=== PATIENT | male | born 1965 | race Two or more races ===

== ENCOUNTER 2024-05-02 09:48 | Outpatient (AMB) | payer BC, SELFPAY ==
--- NOTE | 2024-05-02 00:43 | A.OFFVIS_ITS ---
Intake Visit Reasons: elevated PSA Intake Note: New patient is present to establish care for elevated PSA Any Urology Medications: None Antibiotic Allergy: None Blood Thinner: None Family History: Bladder Cancer? No Prostate Cancer? No Patient Symptoms: None Accompanied by: Self / Same As Patient Allergies No Known Allergies Allergy (Verified 05/02/24 10:03) Medication List - Last Reconciled 05/02/24 by Carlos Hodgson MD atorvastatin 20 mg PO DAILY ciprofloxacin HCl 500 mg PO BID dapagliflozin propanediol (Farxiga) 10 mg PO DAILY empagliflozin-metformin 12.5-1,000 mg (Synjardy) 1 tab PO BID glimepiride 4 mg PO DAILY losartan-hydrochlorothiazide 100-12.5 mg 1 tab PO DAILY Do you need a note to return to daycare/school/sports/work: Yes Return to daycare/school/sports/work/other note: work HPI Comments Details: 05/02/2024--Dontrell is a 58-year-old male here for new patient evaluation for elevated PSA 12.8. Dontrell denies any urinary symptoms. He states prior to starting medication for diabetes he was getting up several times at nighttime but this has resolved since his diabetes is under control. I have discussed PSA is a blood test, prostate specific antigen and is an enzyme secreted by the prostate gland. Elevated PSA may be due to multiple conditions including prostate inflammatory condition, enlarged prostate or prostate cancer. Plan schedule prostate biopsy outpatient. Cipro 500 mg twice a day for 5 days start 1 day prior to prostate biopsy. [facility] Medical History (Updated 05/02/24 @ 13:21 by Carlos Hodgson MD) PSA elevation Dyslipidemia DM w/o complication type II A-fib GERD (gastroesophageal reflux disease) Hypertension Surgical History History of appendectomy Review of Systems Const All systems reviewed & are unremarkable except as noted in HPI and below Reports no additional complaints Eyes Reports no additional complaints ENT Reports no additional complaints Card Reports no additional complaints Resp Reports no additional complaints GI Reports no additional complaints Reports as per HPI Musc Reports no additional complaints Skin/Breast Reports system reviewed and no additional complaints, except as documented Neuro Reports no additional complaints Psych Reports no additional complaints Endo Reports no additional complaints Johny/Lymph Reports no additional complaints Aller/Immun Reports no additional complaints Physical Exam Const General: healthy appearing, no acute distress and well developed Orientation/consciousness: patient oriented x3 HEENT Head: Yes normocephalic and Yes atraumatic Eyes Conjunctivae: conjunctivae normal Neck Neck: Yes normal visual inspection Chest Chest palpation & inspection: normal inspection of the chest Resp Effort & Inspection: normal respiratory effort Cardio Rate: regular rate GI Inspection: Yes normal to inspection Skin General skin exam: no rashes or lesions noted Neuro General: patient oriented x3 Psych Appearance: grossly normal Affect: normal affect Results AMB Urinalysis, Automated UA Leukoctes 0 Corrie/uL Last Edit by Korin Rothman CMA on 05/02/24 10:05 UA Nitrite Negative Last Edit by Korin Rothman CMA on 05/02/24 10:05 UA Urobilinogen 0.2 mg/dL Last Edit by Korin Rothman CMA on 05/02/24 10:0 5 UA Protein 0 mg/dL Last Edit by Korin Rothman CMA on 05/02/24 10:05 UA pH 7.5 Last Edit by Korin Rothman CMA on 05/02/24 10:05 UA Blood 0 Jakob/uL Last Edit by Korin Rothman, ZAHEER on 05/02/24 10:05 UA Specific [place] 1.015 Last Edit by Korin Rothman CMA on 05/02/24 10: 05 UA Ketone Negative Last Edit by Korin Rothman CMA on 05/02/24 10:05 UA Bilirubin 0 mg/dL Last Edit by Korin Rothman CMA on 05/02/24 10:05 UA Glucose 1000 mg/dL Last Edit by Korin Rothman CMA on 05/02/24 10:05 Results Reviewed Results Reviewed: Laboratory Last Values Urine pH (Auto) 7.5 05/02/24 09:55 Specific [place] (Auto) 1.015 05/02/24 09:55 Urine Protein (Auto) 0 mg/dL 05/02/24 09:55 Glucose (UA)(Auto) 1000 mg/dL 05/02/24 09:55 Urine Ketones (Auto) Negative 05/02/24 09:55 Urine Blood (Auto) 0 Jakob/uL 05/02/24 09:55 Urine Nitrite (Auto) Negative 05/02/24 09:55 Urine Bilirubin (Auto) 0 mg/dL 05/02/24 09:55 Urine Urobilinogen (Auto) 0.2 mg/dL 05/02/24 09:55 Leukocyte Esterase (Auto) 0 Corrie/uL 05/02/24 09:55 Assessment & Plan Assessment & Plan (1) PSA elevation: Code(s): R97.20 - Elevated prostate specific antigen [PSA] Category: Medical (2) BPH (benign prostatic hyperplasia): Code(s): N40.0 - Benign prostatic hyperplasia without lower urinary tract symptoms Category: Medical Plan Outpatient prostate biopsy Orders: Orders AMB Urinalysis Automated 05/02/24 Z13.9 - Encounter for screening, unspecified Medications: New ciprofloxacin HCl Start Cipro one day prior to prostate biopsy. 500 mg PO BID 10 tabs 0RF prostate biopsy Patient Instructions: The patient had an opportunity to ask questions regarding treatment plan. The patient expressed understanding and agreement with the above treatment plan. The patient is aware they should contact our office by phone for worsening of their current condition or the appearance of new symptoms. Compliance is encouraged with any medications and followup testing that is ordered. It is a privilege to be allowed the opportunity to participate in the urologic care of your patient. If you have any questions or concerns regarding treatment for the above conditions please do not hesitate to contact me. The office telephone contact is [phone]. This note is constructed in part using voice recognition software. While every e ffort has been made to ensure accuracy film color tester errors may have been included. Yours sincerely, Carlos Hodgson MD Coding Level of Care Code New Pt Level 4 (75481) Diagnoses PSA elevation R97.20 BPH (benign prostatic hyperplasia) N40.0
== END 2024-05-02 11:35 | disposition home or self-care (01) ==
PROVIDERS: Visit Provider Urology
DX: R97.20 Elevated prostate specific antigen [PSA] (principal); N40.0 Benign prostatic hyperplasia without lower urinary tract symptoms
CPT/HCPCS: 99204

== ENCOUNTER → 2024-05-02 09:48 | Outpatient (BNVA) | payer BC, SELFPAY | PROVIDERS: Visit Provider Urology | DX: R97.20 Elevated prostate specific antigen [PSA] (principal); N40.0 Benign prostatic hyperplasia without lower urinary tract symptoms | CPT/HCPCS: 81003 ==

== ENCOUNTER 2024-05-30 07:32 | Outpatient (REF) | payer BC, SELFPAY ==
[2024-05-30] MEDS: Lidocaine HCl 1 % MPF 5 ML VIAL 10 ML SUBCUT (08:44)
--- NOTE | 2024-05-30 09:20 | W.PM.OPN ---
Operative Note Operative Note Date of Service: 05/30/24 Narrative: PreOperative Diagnosis:? ? Elevated PSA Post Operative Diagnosis:??Elevated PSA Procedure:?1. Transrectal ultrasound guided biopsy of the prostate 12 core 2. Transrectal ultrasound measurement of prostate 3. Transrectal ultrasound guided pudendal nerve block Surgeon:?Dr Carlos Hodgson Anesthesia:? Local Indications for procedure: Elevated PSA Procedure: Preoperative antibiotics confirmed. After informed consent was verified the patient was placed on the procedure table in left lateral position. Patient identity confirmed. Safety pause time-out performed. Digital rectal exam performed to dilate rectal sphincter, iodine mixed with lubricant jelly 30 cc placed per rectum. Ultrasound probe was placed per rectum. The prostate was visualized. The prostate was measured width 4.69 cm, height 3.39 cm, length 4.27 cm with a volume of 35.6 mL. An ultrasound guided pudendal nerve block was performed using 10 cc of 1% lidocaine. A 12 core biopsy was performed from the left base, left mid, left apex and right base, mid, apex 2 biopsies from each section. The ultrasound probe was removed and digital palpation of the prostate for 1-2 minutes for hemostasis was performed. The patient tolerated the procedure well. Complications: None
== END 2024-05-30 07:33 | disposition home or self-care (01) ==
LOC: HO.US 07:32
PROVIDERS: Visit Provider Urology
DX: C61 Malignant neoplasm of prostate (principal)
CPT/HCPCS: 55700; 76942; 88305; 88344; J2003

== ENCOUNTER → 2024-05-30 07:32 | Outpatient (BNV) | payer BC, SELFPAY | PROVIDERS: Visit Provider Urology | DX: R97.20 Elevated prostate specific antigen [PSA] (principal) | CPT/HCPCS: 55700; 76872; 76942 ==

== ENCOUNTER 2024-06-16 14:00 | Outpatient (AMB) | payer BC, SELFPAY ==
--- NOTE | 2024-06-16 14:01 | A.OFFVIS_ITS ---
Intake Visit Reasons: Prostate biopsy results(pending) Intake Note: Patient is present for PROSTATE BIOPSY RESULTS Urology Medication:NONE Antibiotic Allergy:NONE Blood Thinner:NONE Burglar Alarm Superintendent Required: Yes Burglar Alarm Superintendent Language: Susie Monroe Burglar Alarm Superintendent Name: [id number] Information Interpreted: non-clinical & clinical Allergies No Known Allergies Allergy (Verified 06/16/24 14:02) Medication List - Last Reconciled 06/16/24 by Carlos Hodgson MD atorvastatin 20 mg PO DAILY ciprofloxacin HCl 500 mg PO BID dapagliflozin propanediol (Farxiga) 10 mg PO DAILY empagliflozin-metformin 12.5-1,000 mg (Synjardy) 1 tab PO BID glimepiride 4 mg PO DAILY losartan-hydrochlorothiazide 100-12.5 mg 1 tab PO DAILY tadalafil 5 mg PO DAILY 30 days HPI Comments Details: 06/16/24--Susie/Farhat certified piling setter utilized; status post prostate biopsy on 05/30/24 I have reviewed results, [place] 3+3, group 1. I have discussed treatment options to include Radical prostatectomy: The major possible side effects of radical prostatectomy are: Urinary incontinence and Erectile dysfunction Radiation Therapy, which uses high-energy rays or particles to kill cancer cells. External beam radiation vs Brachytherapy (internal radiation). Active Surveillance- reasonable in localized early diagnosed prostate cancer. Plan consider active surveillance -patient is pre biopsy PSA greater than 12. Will check bone scan, send prostate biopsy tissue for Polaris and MRI and PSA in 4 months. Discussed baseline erectile function. The patient states it is about 60%. Comorbidity diabetes. Will start daily Cialis 5 mg. 45 minutes spent in review of records pertaining to this visit and including [id number] discussion with the patient and documentation of this visit. 05/02/2024--Dontrell is a 58-year-old male here for new patient evaluation for elevated PSA 12.8. Dontrell denies any urinary symptoms. He states prior to starting medication for diabetes he was getting up several times at nighttime but this has resolved since his diabetes is under control. I have discussed PSA is a blood test, prostate specific antigen and is an enzyme secreted by the prostate gland. Elevated PSA may be due to multiple conditions including prostate inflammatory condition, enlarged prostate or prostate cancer. Plan schedule prostate biopsy outpatient. Cipro 500 mg twice a day for 5 days start 1 day prior to prostate biopsy. PFSH Medical History PSA elevation Dyslipidemia DM w/o complication type II A-fib GERD (gastroesophageal reflux disease) Hypertension Surgical History History of appendectomy Review of Systems Const All systems reviewed & are unremarkable except as noted in HPI and below Reports no additional complaints Eyes Reports no additional complaints ENT Reports no additional complaints Card Reports no additional complaints Resp Reports no additional complaints GI Reports no additional complaints Reports as per HPI Musc Reports no additional complaints Skin/Breast Reports system reviewed and no additional complaints, except as documented Neuro Reports no additional complaints Psych Reports no additional complaints Endo Reports no additional complaints Johny/Lymph Reports no additional complaints Aller/Immun Reports no additional complaints Results AMB Urinalysis, Automated UA Leukoctes 0 Corrie/uL Last Edit by TURNER Vogel on 06/16/24 14:16 UA Nitrite Negative Last Edit by TURNER Vogel on 06/16/24 14:16 UA Urobilinogen 0.2 mg/dL Last Edit by TURNER Vogel on 06/16/24 14:1 6 UA Protein 30 mg/dL Last Edit by TURNER Vogel on 06/16/24 14:16 UA pH 6.0 Last Edit by Xavier Fierro CCM on 06/16/24 14:16 UA Blood 200 Jakob/uL Last Edit by TURNER Vogel on 06/16/24 14:16 UA Specific [place] 1.020 Last Edit by TURNER Vogel on 06/16/24 14: 16 UA Ketone Negative Last Edit by TURNER Vogel on 06/16/24 14:16 UA Bilirubin 0 mg/dL Last Edit by TURNER Vogel on 06/16/24 14:16 UA Glucose 1000 mg/dL Last Edit by TURNER Vogel on 06/16/24 14:16 Results Reviewed Results Reviewed: Collected: 05/30/24 Location: [facility] Received: 05/30/24 Diagnosis A: Left base lateral: Atypical glands, suspicious for adenocarcinoma. B: Left base medial: Benign prostatic tissue. C: Left mid lateral: Prostatic adenocarcinoma, Josias score 6 (3+3), grade group 1, 1.5 mm, 8% of core, perineural invasion, and prostatic intraepithelial neoplasia. D: Left mid medial: Atypical glands, suspicious for adenocarcinoma. E: Left apex lateral: Benign prostatic tissue. F: Left apex medial: Benign prostatic tissue. G: Right base lateral: Benign prostatic tissue. H: Right base medial: Benign prostatic tissue. I: Right mid lateral: Prostatic adenocarcinoma, [place] score 6 (3+3), grade group 1, 0.3 mm, 2% of core. J: Right mid medial: Atypical glands, suspicious for focal prostatic intraepithelial neoplasia. K: Right apex lateral: Prostatic adenocarcinoma, Josias score 6 (3+3), grade group 1, 3 mm, 20% of core. L: Right apex medial: Prostatic adenocarcinoma, [place] score 6 (3+3), grade group 1, 0.5 mm, 3% of core, and focal prostatic intraepithelial neoplasia. Data synopsis - Prostate needle biopsy Histologic type: Adenocarcinoma, acinar type Histologic grade: Josias score: 6 (3+3) % of pattern 4: 0 % of pattern 5: 0 Grade group: 1 Tumor quantitation: Number cores positive: 4 Patient: Dontrell Rios Age/Sex: 58/M MR#: [id number] Page 1 of 4 Surgical Pathology [id number] Total number of cores: 13 % of tissue involved: 3% Periprostatic fat inv.: Not identified Seminal vesicle inv.: Not identified Perineural inv.: Present Lymphatic and/or blood vessel invasion: Not identified Clinical History Elevated PSA Microscopic Description Microscopic sections reviewed. Sections show multiple needle cores of prostate gland parenchyma which are variably involved by prostatic adenocarcinoma ranging from 2-20% of the cores. The tumor is composed of well-formed glands, [place] score 6(3+3), with mildly pleomorphic nuclei and relatively distinct nucleoli. Focal perineural invasion is identified in part C. There is no evidence of lymphovascular invasion, or extraprostatic extension. PIN4 multiplex stain is performed with results on the areas of interest as follows: Suspicious glands in Part A show positive P504S and negative HMWkeratin and p63. Part B shows patchy P504S staining similar to background, with positive HMWkeratin and p63. Part D shows positive P504S and rare basal cells on HMWkeratin and p63. Part I shows positive P504S and negative HMWkeratin and p63. Part J shows an area suspicious for focal PIN on H&E stain, however this area is disrupted on the immunostained slide. Part K shows positive P504S and negative HMWkeratin and p63. Part L shows shows positive P504S and few basal cells in prostatic intraepithelial neoplasia, and positive P504S and negative HMWkeratin and p63 in invasive tumor. Controls stain appropriately. Material Received A: Left base lateral B: Left base medial C: Left mid lateral D: Left mid medial E: Left apex lateral F: Left apex medial G: Right base lateral H: Right base medial I: Right mid lateral J: Right mid medial K: Right apex lateral L: Right apex medial Assessment & Plan Assessment & Plan (1) PSA elevation: Code(s): R97.20 - Elevated prostate specific antigen [PSA] Category: Medical (2) Adenocarcinoma of prostate: Code(s): C61 - Malignant neoplasm of prostate Category: Medical (3) Erectile dysfunction: Code(s): N52.9 - Male erectile dysfunction, unspecified Category: Medical (4) Diabetes: Code(s): E11.9 - Type 2 diabetes mellitus without complications Category: Medical Plan Polaris testing, bone scan, MR prostate. Cialis 5 mg daily Orders: Orders NM bone scan whole body Today C61 - Malignant neoplasm of prostate, R97.20 - Elevated prostate specific antigen [PSA] MR Prostate wo/w con 3 Months C61 - Malignant neoplasm of prostate AMB Urinalysis Automated Today Z13.9 - Encounter for screening, unspecified Urine Culture Today N39.0 - Urinary tract infection, site not specified Medications: Discontinued ciprofloxacin HCl Start Cipro one day prior to prostate biopsy. Discontinued Reason: Patient Completed Course 500 mg PO BID 10 tabs 0RF prostate biopsy Patient Instructions: The patient had an opportunity to ask questions regarding treatment plan. The patient expressed understanding and agreement with the above treatment plan. The patient is aware they should contact our office by phone for worsening of their current condition or the appearance of new symptoms. Compliance is encouraged with any medications and followup testing that is ordered. It is a privilege to be allowed the opportunity to participate in the urologic care of your patient. If you have any questions or concerns regarding treatment for the above conditions please do not hesitate to contact me. The office telephone contact is [phone]. This note is constructed in part using voice recognition software. While every effort has been made to ensure accuracy computer lab para professional errors may have been included. Yours sincerely, Carlos Hodgson MD Coding Level of Care Code Est Pt Level 5 (90478) Diagnoses PSA elevation R97.20 Adenocarcinoma of prostate C61 Erectile dysfunction N52.9 Diabetes E11.9
== END 2024-06-16 15:23 | disposition home or self-care (01) ==
PROVIDERS: Visit Provider Urology
DX: R97.20 Elevated prostate specific antigen [PSA] (principal); C61 Malignant neoplasm of prostate; N52.9 Male erectile dysfunction, unspecified; E11.9 Type 2 diabetes mellitus without complications; Z13.9 Encounter for screening, unspecified
CPT/HCPCS: 99215

== ENCOUNTER 2024-06-16 14:00 | Outpatient (REF) | payer BC, SELFPAY | END 2024-06-16 14:01 | disposition home or self-care (01) | LOC: HO.LAB 14:00 | PROVIDERS: Visit Provider Urology | DX: C61 Malignant neoplasm of prostate (principal); N39.0 Urinary tract infection, site not specified | CPT/HCPCS: 81003; 87086 ==

== ENCOUNTER → 2024-09-11 10:52 | Outpatient (REF) | payer SELFPAY ==
--- NOTE | ~2024-09-11 | NM_ITS ---
EXAMINATION: NM BONE SCAN WHOLE BODY HISTORY: R97.20 - Elevated prostate specific antigen [PSA]. TECHNIQUE: A total body bone scan was performed following the intravenous administration of 33 mCi technetium 99m-MDP. COMPARISON: There are no prior studies for comparison. FINDINGS: There is mild increased uptake at the knees and the AC joints, compatible with osteoarthritis. The remainder of the visualized osseous structures demonstrate a normal distribution of activity. There is normal bilateral renal uptake. NM/NM bone scan whole body IMPRESSION: No scintigraphic evidence of osseous metastatic disease. Electronically signed by: Usman Wills MD 09/12/2024 07:54 AM EDT
--- OUTSIDE RECORDS SUMMARY | 2024-09-11 12:31 | XMS_ITS | Patient Health Record ---
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 Role Phone Sushant Grimm Primary Care Provider David Powell Unavailable [phone] Ann Freeman Unavailable [phone] Allergies No Known Allergies Results Component Value Reference Range Notes MICROALBUMIN, RANDOM URINE ( W/CREATININE) Reviewed date:05/19/2024 10:46:50 AM Interpretation: Performing Lab:NL2, import2 [facility], [address] [place] [address], [phone] Alma Tobar Notes/Report: Received Date: CREATININE, RANDOM URINE 135 20-320 mg/dL ALBUMIN, URINE 4.9 See Note: mg/dL Reference Range: Reference Range Not established ALBUMIN/CREATININE RATIO, RANDOM URINE 36 <30 mg/g creat The ADA defines abnormalities in albumin excretion as follows: Albuminuria Category Result (mg/g creatinine) Normal to Mildly increased <30 Moderately increased 30-299 Severely increased > OR = 300 The ADA recommends that at least two of three specimens collected within a 3-6 month period be abnormal before considering a patient to be within a diagnostic category. CBC (INCLUDES DIFF/PLT) Reviewed date:05/19/2024 10:46:50 AM Interpretation: Performing Lab:NL2, import2 [facility], [address] [place] [address], [phone] Alma Tobar Notes/Report: Received Date: WHITE BLOOD CELL COUNT 10.3 3.8-10.8 Thousand/ uL RED BLOOD CELL COUNT 5.90 4.20-5.80 Million/uL HEMOGLOBIN 16.9 13.2-17.1 g/dL HEMATOCRIT 51.8 38.5-50.0 % MCV 87.8 80.0-100.0 fL MCH 28.6 27.0-33.0 pg MCHC 32.6 32.0-36.0 g/dL For adults, a slight decrease in the calculated MCHC value (in the range of 30 to 32 g/dL) is most likely not clinically significant; however, it should be interpreted with caution in correlation with other red cell parameters and the patient's clinical condition. RDW 12.6 11.0-15.0 % PLATELET COUNT 208 140-400 Thousand/uL MPV 11.4 7.5-12.5 fL ABSOLUTE NEUTROPHILS 6613 1589-9843 cells/uL ABSOLUTE LYMPHOCYTES 2977 850-3900 cells/uL ABSOLUTE MONOCYTES 608 200-950 cells/uL ABSOLUTE EOSINOPHILS 62 15-500 cells/uL ABSOLUTE BASOPHILS 41 0-200 cells/uL NEUTROPHILS 64.2 LYMPHOCYTES 28.9 MONOCYTES 5.9 EOSINOPHILS 0.6 BASOPHILS 0.4 PSA, TOTAL Reviewed date:05/19/2024 10:46:50 AM Interpretation: Performing Lab:[facility], [facility], [address] [place] [address], [phone] Alma Tobar Notes/Report: Received Date: PSA, TOTAL 11.82 < OR = 4.00 ng/mL The total PSA value from this assay system is standardized against the WHO standard. The test result will be approximately 20% lower when compared to the equimolar-standardized total PSA ([place]ocelyn [place]). Comparison of serial PSA results should be interpreted with this fact in mind. This test was performed using the Siemens chemiluminescent method. Values obtained from different assay methods cannot be used interchangeably. PSA levels, regardless of value, should not be interpreted as absolute evidence of the presence or absence of disease. HEMOGLOBIN A1c Reviewed date:05/19/2024 10:46:50 AM Interpretation: Performing Lab:NL2, import2 [facility], [address] [place] [address], [phone] Chichimarilyn Gallegosyesenia Notes/Report: Received Date: [id number] HEMOGLOBIN A1c 6.2 <5.7 % of total Hgb For someone without known diabetes, a hemoglobin A1c value between 5.7% and 6.4% is consistent with prediabetes and should be confirmed with a follow-up test. For someone with known diabetes, a value <7% indicates that their diabetes is well controlled. A1c targets should be individualized based on duration of diabetes, age, comorbid conditions, and other considerations. This assay result is consistent with an increased risk of diabetes. Currently, no consensus exists regarding use of hemoglobin A1c for diagnosis of diabetes for children. COMPREHENSIVE METABOLIC PANE L (REFL) Reviewed date:05/19/2024 10:46:50 AM Interpretation: Performing Lab:NL2, import2 [facility], [address] [place] [address], [phone] Alma Gallegossivanarnaldo Notes/Report: Received Date: [id number] GLUCOSE 144 65-99 mg/dL Fasting reference interval For someone without known diabetes, a glucose value >125 mg/dL indicates that they may have diabetes and this should be confirmed with a follow-up test. UREA NITROGEN (BUN) 16 7-25 mg/dL CREATININE 1.26 0.70-1.30 mg/dL EGFR 67 > OR = 60 mL/min/1.73m2 BUN/CREATININE RATIO SEE NOTE: 6-22 (calc) Not Reported: BUN and Creatinine are within reference range. SODIUM 138 135-146 mmol/L POTASSIUM 4.5 3.5-5.3 mmol/L CHLORIDE 99 98-110 mmol/L CARBON DIOXIDE 33 20-32 mmol/L CALCIUM 10.1 8.6-10.3 mg/dL PROTEIN, TOTAL 7.4 6.1-8.1 g/dL ALBUMIN 4.7 3.6-5.1 g/dL GLOBULIN 2.7 1.9-3.7 g/dL (calc) ALBUMIN/GLOBULIN RATIO 1.7 1.0-2.5 (calc) BILIRUBIN, TOTAL 0.6 0.2-1.2 mg/dL ALKALINE PHOSPHATASE 67 35-144 U/L AST 18 10-35 U/L ALT 22 9-46 U/L LIPID PANEL WITH REFLEX TO D IRECT LDL Reviewed date:05/19/2024 10:46:50 AM Interpretation: Performing Lab:[employer], import2 [facility], [address] [place] [address], [phone] Alma Gallegosyesenia Notes/Report: Received Date: [id number] CHOLESTEROL, TOTAL 88 <200 mg/dL HDL CHOLESTEROL 39 > OR = 40 mg/dL TRIGLYCERIDES 95 <150 mg/dL LDL-CHOLESTEROL 31 Reference range: <100 Desirable range <100 mg/dL for primary prevention; <70 mg/dL for patients with CHD or diabetic patients with > or = 2 CHD risk factors. LDL-C is now calculated using the Robbi calculation, which is a validated novel method providing better accuracy than the Friedewald equation in the estimation of LDL-C. Jus KAN et al. YULIA. 2013;310(90): 6130-4882 (http://SmartPay Jieyin.Vettery/faq/OGI142) CHOL/HDLC RATIO 2.3 <5.0 (calc) NON HDL CHOLESTEROL 49 <130 mg/dL (calc) For patients with diabetes plus 1 major ASCVD risk factor, treating to a non-HDL-C goal of <100 mg/dL (LDL-C of <70 mg/dL) is considered a therapeutic option. HEMOGLOBINOPATHY EVALUATION Reviewed date:11/29/2023 11:01:49 AM Interpretation: Performing Lab:[employer], import2 [facility], [address] [place] [address], [phone] Alma Gallegosyesenia Notes/Report: Received Date: [id number] RED BLOOD CELL COUNT 5.10 4.20-5.80 Million/uL HEMOGLOBIN 14.8 13.2-17.1 g/dL HEMATOCRIT 44.8 38.5-50.0 % MCV 87.8 80.0-100.0 fL MCH 29.0 27.0-33.0 pg RDW 13.2 11.0-15.0 % HEMOGLOBIN A 97.2 >96.0 % HEMOGLOBIN F <1.0 <2.0 % HEMOGLOBIN A2 (QUANT) 2.8 2.0-3.2 % INTERPRETATION Normal phenotype. HEMOGLOBIN A1c Reviewed date:11/29/2023 11:01:49 AM Interpretation: Performing Lab:[employer], import2 [facility], [address] [place] [address], [phone] Alma Tobar Notes/Report: Received Date: [id number] NON-FASTING HEMOGLOBIN A1c 6.4 <5.7 % of total Hgb For someone without known diabetes, a hemoglobin A1c value between 5.7% and 6.4% is consistent with prediabetes and should be confirmed with a follow-up test. For someone with known diabetes, a value <7% indicates that their diabetes is well controlled. A1c targets should be individualized based on duration of diabetes, age, comorbid conditions, and other considerations. This assay result is consistent with an increased risk of diabetes. Currently, no consensus exists regarding use of hemoglobin A1c for diagnosis of diabetes for children. This test was performed on the Jae kay c503 platform. Effective 07/16/23, a change in test platforms from the Ram[employer]rez [employer] to the Jae kay c503 may have shifted HbA1c results compared to historical results. Based on laboratory validation testing conducted at [facility], the Jae platform relative to the Ramírez platform had an average increase in HbA1c value of < or = 0.3%. This difference is within accepted variability established by the National Glycohemoglobin Standardization Program. Note that not all individuals will have had a shift in their results and direct comparisons between historical and current results for testing conducted on different platforms is not recommended. PSA, TOTAL Reviewed date:12/20/2023 04:20:33 PM Interpretation: Performing Lab:ETELVINA2, import2 [facility], [address] [place] [address], [phone] Alma Tobar Notes/Report: Received Date: [id number] PSA, TOTAL 12.35 < OR = 4.00 ng/mL The total PSA value from this assay system is standardized against the WHO standard. The test result will be approximately 20% lower when compared to the equimolar-standardized total PSA ([place]oc[place]). Comparison of serial PSA results should be interpreted with this fact in mind. This test was performed using the Siemens chemiluminescent method. Values obtained from different assay methods cannot be used interchangeably. PSA levels, regardless of value, should not be interpreted as absolute evidence of the presence or absence of disease. URINALYSIS, COMPLETE W/REFLE X TO CULTURE Reviewed date:12/20/2023 04:20:33 PM Interpretation: Performing Lab:NL2, [facility], [address] [place] [address], [phone] Chichimarilyn Noelle Jigaryogi Notes/Report: Received Date: COLOR YELLOW YELLOW APPEARANCE CLEAR CLEAR SPECIFIC GRAVITY 1.021 1.001-1.035 PH 5.5 5.0-8.0 GLUCOSE NEGATIVE NEGATIVE BILIRUBIN NEGATIVE NEGATIVE KETONES TRACE NEGATIVE OCCULT BLOOD NEGATIVE NEGATIVE PROTEIN TRACE NEGATIVE NITRITE NEGATIVE NEGATIVE LEUKOCYTE ESTERASE NEGATIVE NEGATIVE WBC NONE SEEN < OR = 5 /HPF RBC NONE SEEN < OR = 2 /HPF SQUAMOUS EPITHELIAL CELLS NONE SEEN < OR = 5 /HPF BACTERIA NONE SEEN NONE SEEN /HPF HYALINE CAST NONE SEEN NONE SEEN /LPF NOTE This urine was analyzed for the presence of WBC, RBC, bacteria, casts, and other formed elements. Only those elements seen were reported. REFLEXIVE URINE CULTURE NO C ULTURE INDICATED BASIC METABOLIC PANEL Reviewed date:12/20/2023 04:20:33 PM Interpretation: Performing Lab:NL2, import2 [facility], [address] [place] [address], [phone] Chichimarilyn Noelle Jigaryogi Notes/Report: Received Date: GLUCOSE 124 65-99 mg/dL Fasting reference interval For someone without known diabetes, a glucose value between 100 and 125 mg/dL is consistent with prediabetes and should be confirmed with a follow-up test. UREA NITROGEN (BUN) 20 7-25 mg/dL CREATININE 1.13 0.70-1.30 mg/dL EGFR 77 > OR = 60 mL/min/1.73m2 BUN/CREATININE RATIO SEE NOTE: 6-22 (calc) Not Reported: BUN and Creatinine are within reference range. SODIUM 138 135-146 mmol/L POTASSIUM 4.2 3.5-5.3 mmol/L CHLORIDE 100 98-110 mmol/L CARBON DIOXIDE 32 20-32 mmol/L CALCIUM 10.0 8.6-10.3 mg/dL Reason For Referral Reason please refer patient urology for evaluation and management of elevated PSA Diagnosis 1 Elevated PSA measure ment (R97.20) Referral Organization [facility] [employer] Referring Provider First Name David Referring Provider Last Name Sherry Referring Provider Speciality Nurse Prac titioner Referred Provider Specialty Urology General Notes Herson Gruber 11/11 11:23:14 AM > faxed to Referral Priority Routine Diagnosis 1 PSA elevation (R97.2 0) Referral Organization [facility] Referring Provider First Name Sushant Referring Provider Last Name Vahidbladimir Referring Provider Speciality Internal edicine Referred Provider Specialty Urology General Notes SAM MO 12/18/2023 11:37:24 AM > SENT TO DR. ZULEIKA ALONZO Referral Priority Routine Diagnosis 1 PSA elevation (R97.2 0) Referral Organization [facility] Referring Provider First Name Sushant Referring Provider Last Name Alfa Referring Provider Speciality Internal edicine Referred Provider Specialty Urology General Notes [facility] [place] 01/07/2024 02:26:55 PM > Sent to MARCO Saini P: [phone], F: [phone] Referral Priority Routine Diagnosis 1 Colon cancer screeni ng (Z12.11) Referral Organization [facility] Referring Provider First Name Ann Referring Provider Last Name Pete Referring Provider Speciality Nurse Prac titioner Referred Provider Specialty Gastroentero logy General Notes Berry Vibha 03/14 09:02:20 AM > Sent to [employer] p; [phone], f: [phone] Referral Priority Routine Reason Last PSA 12.8, no im provement with abx Diagnosis 1 PSA elevation (R97.2 0) Referral Organization [facility] Referring Provider First Name Ann Referring Provider Last Name Freeman Referring Provider Speciality Nurse Prac cristinaioner Referred Provider Specialty Urology General Notes Vibha Smart 03/14 09:00:50 AM > Sent to [employer] p: [phone], f: [phone] Referral Priority Urgent Medications Medication SIG (Take, Route, Frequency, Duration) Notes Start Date End Date Status Farxiga 10 MG 1 tablet Orally Once a day for 30 days Active Atorvastatin Calcium 20 MG 1 tablet Oral ly Once a day for 90 days Active Synjardy 12.5-1000 MG 1 tablet with meal s Orally Twice a day for 90 days Active Glimepiride 4 MG 1 tablet Orally Once a day for 90 days Active Losartan Potassium-HCTZ 50-12.5 MG 1 tablet Orally Once a day for 90 days Active Losartan Potassium-HCTZ 100-12.5 MG 1 tablet Orally Once a day for 30 days Active Social History Tobacco Use: Social History Observation Description Date Details (start date - stop date) Never Smoker NA - NA Sex Assigned At : Social History Observation Description Sex Assigned At Male Do you smoke? Question Answer Notes Are you a: nonsmoker Tobacco Use (other than smoking) Question Answer Notes Do you use other forms of tobacco? No AUDIT-C (Standard) Question Answer Notes Did you have a drink containing alcohol in the p ast year? No Points 0 Interpretation Negative Problems Problem Type SNOMED Code ICD Code Onset Dates Problem Status W/U Status Risk Notes Problem Essential hypertension (11853250) Essential (primary) hypertension (I10) Active confirmed Problem Body mass index 30.00 to 34.99 (217842579185455) Body mass index (BMI) 33.0-33.9, adult (Z68.33) Active confirmed Problem Gastroesophageal reflux disease (594660445) GERD (gastroesophagea l reflux disease) (K21.9) Active confirmed Problem Atrial fibrillation (60584406) A-fib (I48.91) Active confirmed Problem Hyperglycemia due to type 2 diabetes mellitus (512740823181552) Diabetes mellitus type 2, uncontrolled, without complications (E11.65) Active confirmed Problem Dyslipidemia (396605386) Dyslipidemia (high LDL; low HDL) (E78.5) Active confirmed Vital Signs Heart Rate 76 /min 03/27/2024 BS: 78 Last food/drink intake: 1 & 1/2 hour ago Temperature 98.2 degrees Fahrenheit 03/27/2024 BS: 78 Last food/drink intake: 1 & 1/2 hour ago Respiratory Rate 16 /min 03/27/2024 BS: 78 Last food/drink intake: 1 & 1/2 hour ago Oximetry 96 % 03/27/2024 BS: 78 Last food/drink intake: 1 & 1/2 hour ago Blood pressure diastolic 78 mm Hg 03/27/2024 BS: 78 Last food/drink intake: 1 & 1/2 hour ago Height 68 in 03/27/2024 BS: 78 Last food/drink intake: 1 & 1/2 hour ago Blood pressure systolic 134 mm Hg 03/27/2024 BS: 78 Last food/drink intake: 1 & 1/2 hour ago Weight 199 lbs 03/27/2024 BS: 78 Last food/drink intake: 1 & 1/2 hour ago BMI 30.25 kg/m2 03/27/2024 BS: 78 Last food/drink intake: 1 & 1/2 hour ago Encounters Encounter Location Date Provider Diagnosis [facility] [address] [address] 03/18/2024 [facility] [address] [address] 11/19/2023 David Powell Essential (primary) hypertension I10 ; Body mass index (BMI) 33.0-33.9, adult Z68.33 ; Diabetes mellitus type 2, uncontrolled, without complications E11.65 ; A-fib I48.91 ; Encounter for screening for depression Z13.31 ; Dyslipidemia (high LDL; low HDL) E78.5 and Elevated PSA measurement R97.[address] [facility] [address] [address] 11/26/2023 David Powell Essential (primary) hypertension I10 ; Body mass index (BMI) 33.0-33.9, adult Z68.33 ; Diabetes mellitus type 2, uncontrolled, without complications E11.65 ; A-fib I48.91 ; Encounter for screening for depression Z13.31 ; Dyslipidemia (high LDL; low HDL) E78.5 and Elevated PSA measurement R97.[address] [facility] [address] [address] 2023 Sushant Grimm Essential (primary) hypertension I10 ; Diabetes mellitus type 2, uncontrolled, without complications E11.65 ; Dyslipidemia (high LDL; low HDL) E78.5 ; Preop exam for internal medicine Z01.818 and PSA elevation R97.[address] [facility] [address] [address] 01/07/2024 Sushant Grimm Essential (primary) hypertension I10 ; Diabetes mellitus type 2, uncontrolled, without complications E11.65 ; GERD (gastroesophageal reflux disease) K21.9 ; Dyslipidemia (high LDL; low HDL) E78.5 and PSA elevation R97.[address] [facility] [address] [address] 03/13/2024 Ann Freeman [facility] [address] [address] 03/27/2024 Ann Freeman Essential (primary) hypertension I10 ; Diabetes mellitus type 2, uncontrolled, without complications E11.65 ; GERD (gastroesophageal reflux disease) K21.9 ; Dyslipidemia (high LDL; low HDL) E78.5 ; PSA elevation R97.20 ; Colon cancer screening Z12.11 ; Encounter for screening for depression Z13.31 ; Encounter for screening for malignant neoplasm of prostate Z12.5 and Annual visit for general adult medical examination with abnormal findings Z00.[address] [facility] [address] [address] 05/17/2024 David Powell Essential (primary) hypertension I10 ; Body mass index (BMI) 33.0-33.9, adult Z68.33 ; Diabetes mellitus type 2, uncontrolled, without complications E11.65 ; A-fib I48.91 ; Encounter for screening for depression Z13.31 ; Dyslipidemia (high LDL; low HDL) E78.5 and Elevated PSA measurement R97.20 [facility] [address] [address] 05/26/2024 David Powell Essential (primary) hypertension I10 ; Body mass index (BMI) 33.0-33.9, adult Z68.33 ; Diabetes mellitus type 2, uncontrolled, without complications E11.65 ; A-fib I48.91 ; Encounter for screening for depression Z13.31 ; Dyslipidemia (high LDL; low HDL) E78.5 and Elevated PSA measurement R97.20 [facility] [address] [address] 06/24/2024 Ann Freeman [facility] [address] [address] 05/17/2024 Sushant Grimm Essential (primary) hypertension I10 ; Diabetes mellitus type 2, uncontrolled, without complications E11.65 ; Dyslipidemia (high LDLand low HDL) E78.[address] [facility] [address] [address] 05/22/2024 Sushant Grimm Essential (primary) hypertension I10 Assessments Encounter Date Diagnosis (ICD Code) Assessment Notes Treatment Notes Treatment Clinical Notes Section Notes 11/19/2023 Essential (primary) hypertension (ICD-10 - I10) 11/19/2023 Body mass index (BMI) 33.0-33.9, adult (ICD-10 - Z68.33) 11/26/2023 Essential (primary) hypertension (ICD-10 - I10) 2023 Essential (primary) hypertension (ICD-10 - I10) 2023 Diabetes mellitus type 2, uncontrolled, without complications (ICD-10 - E11.65) 01/07/2024 Essential (primary) hypertension (ICD-10 - I10) 01/07/2024 Diabetes mellitus type 2, uncontrolled, without complications (ICD-10 - E11.65) 03/27/2024 Essential (primary) hypertension (ICD-10 - I10) Advised a low-salt diet. Advised to monitor BP at home. Advised goal of 150 minutes of moderate-intensit y physical activity and 2 days of muscle strengthening activity Advised limited alcohol consumption. Advised well-rounded diet: fruits, vegetables, and lean proteins. 03/27/2024 Diabetes mellitus type 2, uncontrolled, without complications (ICD-10 - E11.65) Advised patient to avoid excessive carbohydrates, fruit juices, and desserts. Advised routine annual ophthalmology examination. Advised routine self-check foot examination. Advised routine foot examination via Healthcare Provider. Advised strict blood pressure control. Advised exercise 5x/week for 45 minutes. 05/17/2024 Essential (primary) hypertension (ICD-10 - I10) 05/22/2024 Essential (primary) hypertension (ICD-10 - I10) 05/26/2024 Essential (primary) hypertension (ICD-10 - I10) 05/17/2024 Essential (primary) hypertension (ICD-10 - I10) 05/17/2024 Diabetes mellitus type 2, uncontrolled, without complications (ICD-10 - E11.65) 05/26/2024 Body mass index (BMI) 33.0-33.9, adult (ICD-10 - Z68.33) 05/17/2024 Body mass index (BMI) 33.0-33.9, adult (ICD-10 - Z68.33) 03/27/2024 GERD (gastroesophageal reflux disease) (ICD-10 - K21.9) Avoid overeating, eating too quickly, eating high-fat foods, eating during stressful situations, or drinking too much alcohol or coffee. Reduce consumption of acidic, high fat and spicy foods. Avoid NSAIDs. Avoid eating 3-4 hours before bed. Maintain adequate hydration and encourage regular exercise. 01/07/2024 GERD (gastroesophageal reflux disease) (ICD-10 - K21.9) 2023 Dyslipidemia (high LDL; low HDL) (ICD-10 - E78.5) 11/26/2023 Body mass index (BMI) 33.0-33.9, adult (ICD-10 - Z68.33) 11/19/2023 Diabetes mellitus type 2, uncontrolled, without complications (ICD-10 - E11.65) 11/19/2023 A-fib (ICD-10 - I48.91) 11/26/2023 Diabetes mellitus type 2, uncontrolled, without complications (ICD-10 - E11.65) 2023 Preop exam for internal medicine (ICD-10 - Z01.818) EKG SINUS NO ACUTE ST TWAVES ABNORMALITIES, CLEAR FOR EYE SURGERY 01/07/2024 Dyslipidemia (high LDL; low HDL) (ICD-10 - E78.5) 03/27/2024 Dyslipidemia (high LDL; low HDL) (ICD-10 - E78.5) Advised low-fat diet: Greens, avoid heavy meats such as pork/beef. Consume more chicken, turkey, and fish. Advised refraining from fried foods, fast foods, and excessive cooking oil. Advised exercise. Monitor glucose intake. Advised LDL <70 for DM II and LDL<100 without a diagnosis of DM II. 05/17/2024 Diabetes mellitus type 2, uncontrolled, without complications (ICD-10 - E11.65) 05/17/2024 Dyslipidemia (high LDL; low HDL) (ICD-10 - E78.5) 05/26/2024 Diabetes mellitus type 2, uncontrolled, without complications (ICD-10 - E11.65) 05/26/2024 A-fib (ICD-10 - I48.91) 05/17/2024 A-fib (ICD-10 - I48.91) 03/27/2024 PSA elevation (ICD-10 - R97.20) Long discussion about concerns of elevated PSA in spite of abx treatment, needs urgent eval from urology. Patient demonstrated understanding of this information and says he will make appointment with urology. 01/07/2024 PSA elevation (ICD-10 - R97.20) 2023 PSA elevation (ICD-10 - R97.20) 11/26/2023 A-fib (ICD-10 - I48.91) 11/19/2023 Encounter for screening for depression (ICD-10 - Z13.31) 11/19/2023 Dyslipidemia (high LDL; low HDL) (ICD-10 - E78.5) 11/26/2023 Encounter for screening for depression (ICD-10 - Z13.31) 03/27/2024 Colon cancer screening (ICD-10 - Z12.11) Negative fit kit. Due for colon CA screen. Colon cancer screening options reviewed in detail. Educated on signs of colon cancer such as bloody or black tar like stools, rectal pain, abdominal pain, stool pattern changes, unintentional weight loss or night sweats. 05/17/2024 Encounter for screening for depression (ICD-10 - Z13.31) 05/26/2024 Encounter for screening for depression (ICD-10 - Z13.31) 05/26/2024 Dyslipidemia (high LDL; low HDL) (ICD-10 - E78.5) 05/17/2024 Dyslipidemia (high LDL; low HDL) (ICD-10 - E78.5) 03/27/2024 Encounter for screening for depression (ICD-10 - Z13.31) 11/26/2023 Dyslipidemia (high LDL; low HDL) (ICD-10 - E78.5) 11/19/2023 Elevated PSA measurement (ICD-10 - R97.20) 11/26/2023 Elevated PSA measurement (ICD-10 - R97.20) 03/27/2024 Encounter for screening for malignant neoplasm of prostate (ICD-10 - Z12.5) PSA concerning for malignancy. see PSA elevation 05/17/2024 Elevated PSA measurement (ICD-10 - R97.20) 05/26/2024 Elevated PSA measurement (ICD-10 - R97.20) 03/27/2024 Annual visit for general adult medical examination with abnormal findings (ICD-10 - Z00.01) Performed comprehensive physical exam today w/ above abnormal findings. Reviewed health maintenance measures appropriate for age and risk factors. Will obtain routine labs and call w/ results when available. Plan Of Treatment Pending Test Test Name Order Date BASIC METABOLIC PANEL 06/27/2023 URINALYSIS, COMPLETE W/REFLEX TO CULTURE 06/27/2023 PSA, TOTAL 06/27/2023 HEMOGLOBINOPATHY EVALUATION 11/19/2023 Insurance Providers Payer Name Payer Address Payer Phone Subscriber Number Group Number Insured Name Patient Relationship to Insured Coverage Start Date Coverage End Date [facility] [address] [place] [address] [phone] [id number] Dontrell Russo Self - patient is the insured Medical (General) History Surgical History Surgery Date(Month/Year) Appendicectomy 08/2017
--- OUTSIDE RECORDS SUMMARY | 2024-09-11 12:31 | XMS_ITS ---
Author Organization [employer] Address [address] [place] [phone] Care Team Providers Care Provider Network Analyst Name Role Phone Sushant Grimm Primary Care Provider [phone] Ann Freeman [phone] REASON FOR VISIT 3 month f/u Social History Sex Assigned At : Social History Observation Description Sex Assigned At Male Encounters Encounter Location Date Provider Diagnosis [facility] [address] [place] [phone] 06/24/2024 Ann Freeman Plan Of Treatment No Information Progress Notes * Dontrell DAVISDOB:1965 (58 yo M)Acc No.[id number]:06/24/2024 Progress Notes Patient:?Dontrell DAVIS Provider:?Ann Freeman NP :1965???Age:58 Y???Sex:Male Donaldo e:06/24/2024 Address[facility] [id number] Pcp:Sushant Grimm Subjective: * Chief Complaints: * ???1. 3 month f/u. * Medical History:? Objective: * Vitals:? Assessment: Plan: * Treatment: * Procedure Codes:?NSHOW No Sh ow * * Sign off status: Completed true * Provider:?Ann Freeman NP Date:?03/2025 Generated for Emily whitaker/Alfonso/Bel on:?09/11/2024 12:30 PM EDT
--- OUTSIDE RECORDS SUMMARY | 2024-09-11 12:31 | XMS_ITS ---
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 Name Role Phone Sushant Grimm Primary Care Provider [phone] David Dickerson [phone] REASON FOR VISIT pharmacy clarification // [facility], [facility], need confirmation Medications Medication SIG (Take, Route, Frequency, Duration) Notes Start Date End Date Status Farxiga 10 MG 1 tablet Orally Once a day for 30 days Active Atorvastatin Calcium 20 MG 1 tablet Oral ly Once a day for 90 days Active Glimepiride 4 MG 1 tablet Orally Once a day for 90 days Active Losartan Potassium-HCTZ 50-12.5 MG 1 tablet Orally Once a day for 90 days Active Losartan Potassium-HCTZ 100-12.5 MG 1 tablet Orally Once a day for 30 days Active Synjardy 12.5-1000 MG 1 tablet with meal s Orally Twice a day for 90 days Active Social History Sex Assigned At : Social History Observation Description Sex Assigned At Male Encounters Encounter Location Date Provider Diagnosis [facility] [address] [place] [phone] 05/26/2024 David Powell Essential (primary) hypertension I10 ; Body mass index (BMI) 33.0-33.9, adult Z68.33 ; Diabetes mellitus type 2, uncontrolled, without complications E11.65 ; A-fib I48.91 ; Encounter for screening for depression Z13.31 ; Dyslipidemia (high LDL; low HDL) E78.5 and Elevated PSA measurement R97.20 Assessments Encounter Date Diagnosis (ICD Code) Assessment Notes Treatment Notes Treatment Clinical Notes Section Notes 05/26/2024 Essential (primary) hypertension (ICD-10 - I10) 05/26/2024 Body mass index (BMI) 33.0-33.9, adult (ICD-10 - Z68.33) 05/26/2024 Diabetes mellitus type 2, uncontrolled, without complications (ICD-10 - E11.65) 05/26/2024 A-fib (ICD-10 - I48.91) 05/26/2024 Encounter for screening for depression (ICD-10 - Z13.31) 05/26/2024 Dyslipidemia (high LDL; low HDL) (ICD-10 - E78.5) 05/26/2024 Elevated PSA measurement (ICD-10 - R97.20) Plan Of Treatment Medication Medication Name Sig Start Date Stop Date Notes Farxiga 10 MG 1 tablet Orally Once a day for 30 days Atorvastatin Calcium 20 MG 1 tablet Oral ly Once a day for 90 days Glimepiride 4 MG 1 tablet Orally Once a day for 90 days Losartan Potassium-HCTZ 50-1 2.5 MG 1 tablet Orally Once a day for 90 days Synjardy 12.5-1000 MG 1 tablet with meal s Orally Twice a day for 90 days Next Appt Details Follow Up: 4 Weeks, Reason: diabetic follow up Progress Notes * FISHDontrell LINDOB:1965 (58 yo M)Acc No.[id number]:05/26/2024 Patient:?Dontrell DAVIS Provider:?Sushant Powell NP :1965???Age:58 Y???Sex:Male Donalod e:05/26/2024 Address:[facility] [address] [id number] Pcp:Sushant Grimm Subjective: * Chief Complaints: * ???pharmacy clarification // Inessa, [facility] 2 [facility], need confirmation * HPI: ???Current Presentation:?I spoke at the [facility] pharmacy for this 58 y/o, male with history of Essential (primary) hypertension, Diabetes mellitus? with whom Appointment was conducted by phone with consent from patient who confirmed identity with name and .?The Pharmacy called states that patient insurance will not cover synjardy and Farxiga , they were asked to cancel Farxiga and Also mainly patient has not insurance card in their file.. 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 * ROS:?General/Constitutional:?Denies?Change in appetite.?Denies?Chills.?Denies?Fatigue.?Denies?Fever.?Denies?Headache.?Denies?L ightheadedness.?Denies?Night sweats.?Denies?Sleep disturbance.?Denies?Weight gain.?Denies?Weight loss.?Endocrine:?Denies?Cold intolerance.?Denies?Difficulty sleeping.?Denies?Dizziness.?Denies?Excessive sweating.?Denies?Excessive thirst.?Denies?Frequent urination.?Denies?Heat intolerance.?Denies?Irregular menses.?Denies?Weakness.?Denies?Weight loss.?Respiratory:?Denies?Breathing pattern.?Denies?Chest pain.?Denies?Cough.?Denies?Hemoptysis.?Denies?Pain with inspiration.?Denies?Shortness of breath at rest.?Denies?Shortness of breath with exertion.?Admits?Sputum production.?Cardiovascular:?Denies?Chest pain at rest.?Denies?Chest pain with exertion.?Denies?Claudication.?Denies?Cyanosis.?Denies?Difficulty laying flat.?Denies?Dizziness.?Denies?Dyspnea on exertion.?Denies?Fluid accumulation in the legs.?Denies?Irregular heartbeat.?Denies?Orthopnea.?Denies?Palpitations.?Denies?Shortness of breath.?Denies?Weakness.?Denies?Weight gain.?Gastrointestinal:?Denies?Abdominal pain.?Denies?Blood in stool.?Denies?Change in bowel habits.?Denies?Constipation.?Denies?Decreased appetite.?Denies?Diarrhea.?Denies?Difficulty swallowing.?Denies?Heartburn.?Denies?Hematemesis.?Denies?Nausea.?Denies?Rectal bleeding.?Denies?Vomiting.?Genitourinary:?Denies?Abdominal pain/swelling.?Denies?Blood in urine/Hematuria.?Denies?Difficulty urinating.?Denies?Frequent urination.?Denies?Pain in lower back.?Denies?Painful urination.?Denies?Urinary retention.?Denies?Urinary incontinence.?Denies?Urinary urgency.?Musculoskeletal:?Muskuloskeletal?Denies.?Denies?Carpal tunnel.?Denies?Joint stiffness.?Denies?Leg cramps.?Denies?Muscle aches.?Denies?Pain in shoulder(s).?Denies?Painful joints.?Denies?Sciatica.?Denies?Swollen joints.?Denies?Trauma to arm(s).?Denies?Trauma to hip(s).?Denies?Trauma to knee(s).?Denies?Trauma to ankle(s).?Denies?Weakness.?Skin:?Denies?Dry skin.?Denies?Eczema.?Denies?Itching.?Denies?Rash on feet.?Neurologic:?Denies?Ataxia/Balance difficulty.?Denies?Coordination.?Denies?Difficulty speaking.?Denies?Irritability.?Denies?Loss of strength.?Denies?Loss of use of extremity.?Denies?Memory loss.?Denies?Pain.?Denies?Seizures.?Denies?Tics.?Denies?Tingling/Numbness.?Denie s?Transient loss of vision,?.?Denies?Tremor.?Psychiatric:?Denies?Anxiety.?Denies?Delusions.?Denies?Depressed mood.?Denies?Difficulty sleeping.?Denies?Eating disorder.?Denies?Loss of appetite.?Denies?Mental or Physical abuse.?Denies?Stressors. Denies?Substance abuse.?Denies?Suicidal thoughts.? * Medical History:? * Medications:?TakingSynjardy 12.5-1000 MG Tablet 1 tablet with meals Orally Twice a day Glimepiride 4 MG Tablet 1 tablet Orally Once a day Farxiga 10 MG Tablet 1 tablet Orally Once a day Atorvastatin Calcium 20 MG Tablet 1 tablet Orally Once a day Losartan Potassium-HCTZ 100-12.5 MG Tablet 1 tablet Orally Once a day Losartan Potassium-HCTZ 50-12.5 MG Tablet 1 tablet Orally Once a day Taking Synjardy 12.5-1000 MG Tablet 1 tablet with meals Orally Twice a day Taking Glimepiride 4 MG Tablet 1 tablet Orally Once a day Taking Farxiga 10 MG Tablet 1 tablet Orally Once a day Taking Atorvastatin Calcium 20 MG Tablet 1 tablet Orally Once a day Taking Losartan Potassium-HCTZ 100-12.5 MG Tablet 1 tablet Orally Once a day Taking Losartan Potassium-HCTZ 50-12.5 MG Tablet 1 tablet Orally Once a day Objective: * Vitals:? Assessment: * Assessment: 1.?Essential (primary) hyper tension - I10 (Primary)???2.?Body mass index (BMI) 33.0-33.9, adult - Z68.33???3.?Diabetes mellitus type 2, uncontrolled, without complications - E11.65???4.?A-fib - I48.91???5.?Encounter for screening for depression - Z13.31???6.?Dyslipidemia (high LDL; low HDL) - E78.5???7.?Elevated PSA measurement - R97.20??? Plan: * Treatment: 2.?Diabetes mellitus type 2, uncontrolled, without complications? Refill Synjardy Tablet, 12.5-1000 MG, 1 tablet with meals, Orally, Twice a day, 90 days, 180 Tablet, Refills 1;?Refill Glimepiride Tablet, 4 MG, 1 tablet, Orally, Once a day, 90 days, 90 Tablet, Refills 1;?Refill Farxiga Tablet, 10 MG, 1 tablet, Orally, Once a day, 30 days, 30, Refills 5.?? 3.?Dyslipidemia (high LDL; l ow HDL)? Refill Atorvastatin Calcium Tablet, 20 MG, 1 tablet, Orally, Once a day, 90 days, 90 Tablet, Refills 1.?? * Procedure Codes:? * Follow Up:?4 Weeks (Reason: diabetic follow up) * * Sign off status: Completed true * Provider:?Sushant Powell NP Date:? 5 Generated for Emily whitaker/Alfonso/Daríoitting on:?09/11/2024 12:30 PM EDT
--- OUTSIDE RECORDS SUMMARY | 2024-09-11 12:31 | XMS_ITS ---
Author Organization [employer] Address [address] [place] [phone] Care Team Providers Care Legend Maker Name Role Phone Sushant Grimm Primary Care Provider Medications Medication SIG (Take, Route, Frequency, Duration) Notes Start Date End Date Status Losartan Potassium-HCTZ 50-12.5 MG 1 tablet Orally Once a day for 90 days Active Social History Sex Assigned At : Social History Observation Description Sex Assigned At Male Encounters Encounter Location Date Provider Diagnosis [facility] [address] [phone] 05/22/2024 Sushant Grimm Essential (primary) hypertension I10 Assessments Encounter Date Diagnosis (ICD Code) Assessment Notes Treatment Notes Treatment Clinical Notes Section Notes 05/22/2024 Essential (primary) hypertension (ICD-10 - I10) Plan Of Treatment Medication Medication Name Sig Start Date Stop Date Notes Losartan Potassium-HCTZ 50-1 2.5 MG 1 tablet Orally Once a day for 90 days Progress Notes * Dontrell DAVISDOB:1965 (58 yo M)Acc No.[id number]:05/22/2024 Patient:?Dontrell DAVIS :1965???Age:58 Y???Sex:Male Address[facility] [place], [address] * Refills? Refill Losartan Potassium-HCTZ Tablet, 50-12.5 MG, Orally, 90 Tablet, 1 tablet, Once a day, 90 days, Refills=1 * true * Date:? Generated for Emily whitaker/Alfonso/Bel on:?09/11/2024 12:31 PM EDT
== END ==
LOC: HO.NUCMED 10:52
PROVIDERS: Visit Provider Urology
DX: R97.20 Elevated prostate specific antigen [PSA] (principal); C61 Malignant neoplasm of prostate
CPT/HCPCS: 78306; A9503

== ENCOUNTER → 2024-09-11 10:55 | Outpatient (BNV) | payer SELFPAY | PROVIDERS: Visit Provider Radiology Diagnostic Radiology | DX: R97.20 Elevated prostate specific antigen [PSA] (principal) | CPT/HCPCS: 78306 ==

== ENCOUNTER 2024-10-23 09:40 | Outpatient (REF) | payer MEDICAID, SELFPAY ==
--- OUTSIDE RECORDS SUMMARY | 2024-10-23 10:42 | XMS_ITS | Encounter Summary ---
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, without long-term current use of insulin, unspecified retinopathy severity (CMS/HCC) (Primary Dx); 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, unspecified proliferative retinopathy type (CMS/HCC); Essential hypertension; Adenocarcinoma of prostate (CMS/HCC) Social History Tobacco Use Types Packs/Day Years Used Date Smoking Tobacco: Never Smokeless Tobacco: Never Tobacco Cessation:Counseling Given: Not Answered Sex and Gender Information Value Date Recorded Sex Assigned at Male 10/23/2024 8:33 AM EDT Legal Sex Male 10:42 AM EDT Gender Identity Male 10/23/2024 8:33 AM EDT Sexual Orientation Straight 10/23/2024 8: 33 AM EDT documented as of this encounter Last Filed Vital Signs Vital Sign Reading Time Taken Comments Blood Pressure 129/73 10/23/2024 8:44 AM EDT Pulse 54 10/23/2024 8:44 AM EDT Temperature 37.1 ??C (98.8 ??F) 10/23/2024 8:44 AM ED T Respiratory Rate 18 10/23/2024 8:44 AM EDT Oxygen Saturation 99% 10/23/2024 8:44 AM EDT Inhaled Oxygen Concentration - - Weight 73.6 kg (162 lb 3.2 oz) 10/23/2024 8:44 A M EDT Height - - Body Mass Index - - documented in this encounter Plan of Treatment Scheduled Orders Name Type Priority Associated Diagnoses Orde r Schedule T4, Free Lab Routine 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, without long-term current use of insulin, unspecified retinopathy severity (CMS/HCC) Essential hypertension Expected: 10/23/2024 (Approximate), Expires: 10/23/2025 Vitamin D, 25-Hydroxy, Total, Immunoassay Lab Routine 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, without long-term current use of insulin, unspecified retinopathy severity (CMS/HCC) Essential hypertension Expected: 10/23/2024 (Approximate), Expires: 10/23/2025 Lipid Panel, Standard Lab Routine 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, without long-term current use of insulin, unspecified retinopathy severity (CMS/HCC) Essential hypertension Expected: 10/23/2024 (Approximate), Expires: 10/23/2025 TSH Lab Routine 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, without long-term current use of insulin, unspecified retinopathy severity (CMS/HCC) Essential hypertension Expected: 10/23/2024 (Approximate), Expires: 10/23/2025 Hepatic Function Panel Lab Routine 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, without long-term current use of insulin, unspecified retinopathy severity (CMS/HCC) Essential hypertension Expected: 10/23/2024 (Approximate), Expires: 10/23/2025 Hemoglobin A1c Lab Routine 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, without long-term current use of insulin, unspecified retinopathy severity (CMS/HCC) Essential hypertension Expected: 10/23/2024 (Approximate), Expires: 10/23/2025 Basic Metabolic Panel Lab Routine 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, without long-term current use of insulin, unspecified retinopathy severity (CMS/HCC) Essential hypertension Expected: 10/23/2024 (Approximate), Expires: 10/23/2025 CBC Lab Routine 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, without long-term current use of insulin, unspecified retinopathy severity (CMS/HCC) Essential hypertension Expected: 10/23/2024, Expires: 10/23/2025 Albumin, Random Urine W/Creatinine Lab Routine 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, without long-term current use of insulin, unspecified retinopathy severity (CMS/HCC) Essential hypertension Expected: 10/23/2024 (Approximate), Expires: 10/23/2025 Hepatitis C Antibody with Reflex to HCV, RNA, Quantitative, Real-Time PCR Lab Routine 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, without long-term current use of insulin, unspecified retinopathy severity (CMS/HCC) Essential hypertension Expected: 10/23/2024, Expires: 10/23/2025 RPR (Monitor) with Reflex to??Titer Lab Routine 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, without long-term current use of insulin, unspecified retinopathy severity (CMS/HCC) Essential hypertension Expected: 10/23/2024, Expires: 10/23/2025 Hepatitis B Surface Antibody, Qualitative Lab Routine 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, without long-term current use of insulin, unspecified retinopathy severity (CMS/HCC) Essential hypertension Expected: 10/23/2024 (Approximate), Expires: 10/23/2025 Hepatitis A Antibody, Total Lab Routine 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, without long-term current use of insulin, unspecified retinopathy severity (CMS/HCC) Essential hypertension Expected: 10/23/2024 (Approximate), Expires: 10/23/2025 Hepatitis B Core Antibody, Total Lab Routine 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, without long-term current use of insulin, unspecified retinopathy severity (CMS/HCC) Essential hypertension Expected: 10/23/2024 (Approximate), Expires: 10/23/2025 T-SPOT??.TB Lab Routine 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, without long-term current use of insulin, unspecified retinopathy severity (CMS/HCC) Essential hypertension Expected: 10/23/2024 (Approximate), Expires: 10/23/2025 documented as of this encounter Procedures Procedure Name Priority Date/Time Associated Diagnosis Comments POCT GLYCATED HEMOGLOBIN, TOTAL Routine 10/23/2024 9:29 AM EDT 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, without long-term current use of insulin, unspecified retinopathy severity (CMS/HCC) POCT GLUCOSE Routine 10/23/2024 9:29 AM EDT 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, without long-term current use of insulin, unspecified retinopathy severity (CMS/HCC) documented in this encounter Results * (ABNORMAL) POCT A1C (10/23/2024 9:29 AM EDT) Hemoglobin A1C 7.2(A) 4.0 - 6.0 % Blood 10/23/2024 9:29 AM EDT Anne Oliva DO POINT OF CARE TEST ENTER/MARISSA T ORDERABLES Final Result * POCT glucose manually resulted (10/23/2024 9:29 AM EDT) Glucose Blood, POC 164 60 - 200 mg/dL Blood Capillary blood specimen / Unknown 10/23/2024 9:29 AM EDT us Anne Oliva DO POINT OF CARE TEST ENTER/MARISSA T ORDERABLES Final Result documented in this encounter Visit Diagnoses Diagnosis 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
[2024-10-23 11:27] LABS: Hematocrit 45.6 % (42.0-52.0); Hemoglobin 15.4 g/dl (14.0-18.0); Mean Corpuscular HGB Conc 33.8 g/dl (31.0-36.0); Mean Corpuscular Hemoglobin 28.7 pg (27.0-33.0); Mean Corpuscular Volume 85.1 fL (80.0-98.0); Mean Platelet Volume 11.1 fL (9.4-12.4); Platelet Count 205 X10*3/uL (160-400); Red Blood Count 5.36 X10*6/uL (4.60-5.80); Red Cell Distribution Width 12.7 % (11.0-16.0); White Blood Count 8.6 X10*3/uL (4.8-10.8)
[2024-10-23 11:35] LABS: Estimated Average Glucose 154 mg/dL
[2024-10-23 11:50] LABS: Creatinine Urine 109.68 mg/dL; Microalbum/Creatinine Ratio Ur 66.5 ug/mg cr (<30)
[2024-10-23 11:51] LABS: Alanine Aminotransferase 30 U/L (0-40); Albumin Level 4.7 g/dL (3.5-5.0); Alkaline Phosphatase 80 U/L (39-117); Anion Gap 13 (12-20); Aspartate Amino Transferase 68 U/L (5-37); Bilirubin Direct 0.2 mg/dL (0.0-0.5); Bilirubin Total 0.6 mg/dL (0.0-1.0); Blood Urea Nitrogen 26 mg/dL (9-16); Calcium 9.9 mg/dL (8.4-10.2); Carbon Dioxide 29 mmol/L (22-29); Chloride 104 mmol/L (96-108); Cholesterol 141 mg/dL (<200); Estimated Glomerular Filt Rate > 60; Glucose Random 176 mg/dL (60-115); HDL Cholesterol 37 mg/dL (>40); LDL Cholesterol Calculated 71 mg/dL (<100); Potassium 3.9 mmol/L (3.3-5.1); Sodium 142 mmol/L (135-145); Total Protein 7.9 g/dL (6.5-8.0); Triglycerides 167 mg/dL (<150)
[2024-10-23 12:07] LABS: HBc Num1 0.22 S/CO (0.00-0.79); HBsAGNum1 0.32 S/CO (0.00-0.99); HIV AB/AG Nonreactive (Nonreactive); HIV Num 1 0.06 S/CO (0.00-0.99); Hepatitis B Core Antibody Nonreactive (Nonreactive); Hepatitis B Surface Antigen Negative (Negative); ~HepC Num1 0.15 S/CO (0.00-0.79); ~Hepatitis B Surface Antibody NONREACTIVE (Nonreactive); ~Hepatitis C Antibody Nonreactive (Nonreactive)
[2024-10-23 12:10] LABS: Free T4 (Free Thyroxine) 0.96 ng/dL (0.71-1.85); Thyroid Stimulating Hormone 0.52 uIU/mL (0.32-4.0); Vitamin D 25-OH Total 28.3 ng/mL (>30)
[2024-10-23 14:19] LABS: CT PCR NOT DETECTED (Not Detect.); NG PCR NOT DETECTED (Not Detect.)
[2024-10-24 08:14] LABS: Hepatitis A Antibody IgG REACTIVE (Nonreactive); ~Hepatitis A Antibody IgG 9.78 S/CO (0.00-0.99)
[2024-10-26 08:33] LABS: TS Negative Control Passed; TS Panel A 86; TS Panel B 109; TS Positive Control Passed; TSpotTB Positive (Negative)
[2024-10-27 15:04] LABS: RPR Rapid Plasma Reagin NON-REACTIVE (NON-REACTIVE)
== END 2024-10-23 09:41 | disposition home or self-care (01) ==
LOC: HO.HHCL 09:40
PROVIDERS: Visit Provider Family Medicine
DX: E11.311 Type 2 diabetes mellitus with unspecified diabetic retinopathy with macular edema (principal); I10 Essential (primary) hypertension
CPT/HCPCS: 80048; 80061; 80076; 82043; 82306; 82570; 83036; 84439; 84443; 85027; 86481; 86592; 86704; 86706; 86708; 86803; 87340; 87389; 87491; 87591

== ENCOUNTER 2024-10-31 09:48 | Outpatient (AMB) | payer MEDICAID, SELFPAY ==
--- NOTE | 2024-10-31 09:48 | A.OFFVIS_ITS ---
Intake Visit Reasons: 4m/MRI/Bone scan Intake Note: Patient is present for 4 mo follow up and bone scan results Urology Medication:Tadalafil Antibiotic Allergy:NONE Blood Thinner:NONE Night Coordinator Required: Yes Night Coordinator Services: Night Coordinator Present Night Coordinator Name: Raleigh Valencia363 Information Interpreted: non-clinical & clinical Accompanied by: Self / Same As Patient Allergies No Known Allergies Allergy (Verified 10/31/24 10:04) Medication List - Last Reconciled 10/31/24 by Carlos Hodgson MD atorvastatin 20 mg PO DAILY dapagliflozin propanediol (Farxiga) 10 mg PO DAILY empagliflozin-metformin 12.5-1,000 mg (Synjardy) 1 tab PO BID losartan-hydrochlorothiazide 100-12.5 mg 1 tab PO DAILY tadalafil 5 mg PO DAILY 30 days HPI Comments Details: 10/31/2024-- History of Present Illness - The patient is a 58-year-old male presenting for follow-up on prostate cancer diagnosis and management. - Prostate cancer was diagnosed following a prostate biopsy, which revealed minimal cancer volume, classified as group 1, indicating a low-grade tumor. - The bone scan conducted was negative, indicating no metastasis. - Due to the minimal volume of cancer, further genetic testing on the biopsy tissue was not possible. - The cancer is localized and low volume, which is considered a favorable prognosis. Urinary Symptoms Review Results - Bone scan: Negative for metastasis - Prostate biopsy: Minimal cancer volume, group 1 classification Discussion Notes I discussed with the patient that the prostate cancer is low volume and localized, which is a favorable prognosis. Active surveillance is recommended as per the [employer] guidelines. We will closely monitor the condition with regular PSA tests and imaging as needed. I explained the potential risks and benefits of aggressive treatments like surgery or radiation, which may impact quality of life due to possible side effects such as erectile dysfunction and urinary incontinence. The patient was informed about the medication finasteride, which has been prescribed to help shrink the prostate and potentially benefit the cancer cells. Follow-up is scheduled in 10 weeks, with a PSA test to be done a week prior. Plan - Continue active surveillance for prostate cancer as recommended by the [employer]. - Prescribed finasteride 5 mg daily to shrink the prostate and potentially benefit cancer cells. - Schedule follow-up in 10 weeks with a PSA test to be conducted a week prior. - Discussed potential quality of life impacts of aggressive treatments, including erectile dysfunction and urinary incontinence. Patient Instructions Patient was informed and verbally consented to the use of an ambient scribe for clinic note documentation during this visit. 06/16/24--Susie/Farhat certified edging machine catcher utilized; status post prostate biopsy on 05/30/24 I have reviewed results, Josias 3+3, group 1. I have discussed treatment options to include Radical prostatectomy: The major possible side effects of radical prostatectomy are: Urinary incontinence and Erectile dysfunction Radiation Therapy, which uses high-energy rays or particles to kill cancer cells. External beam radiation vs Brachytherapy (internal radiation). Active Surveillance- reasonable in localized early diagnosed prostate cancer. Plan consider active surveillance -patient is pre biopsy PSA greater than 12. Will check bone scan, send prostate biopsy tissue for [facility] and MRI and PSA in 4 months. Discussed baseline erectile function. The patient states it is about 60%. Comorbidity diabetes. Will start daily Cialis 5 mg. 45 minutes spent in review of records pertaining to this visit and including [id number] discussion with the patient and documentation of this visit. 05/02/2024--Dontrell is a 58-year-old male here for new patient evaluation for elevated PSA 12.8. Dontrell denies any urinary symptoms. He states prior to s tarting medication for diabetes he was getting up several times at nighttime but this has resolved since his diabetes is under control. I have discussed PSA is a blood test, prostate specific antigen and is an enzyme secreted by the prostate gland. Elevated PSA may be due to multiple conditions including prostate inflammatory condition, enlarged prostate or prostate cancer. Plan schedule prostate biopsy outpatient. Cipro 500 mg twice a day for 5 days start 1 day prior to prostate biopsy. [facility] Medical History PSA elevation Dyslipidemia DM w/o complication type II A-fib GERD (gastroesophageal reflux disease) Hypertension Surgical History History of appendectomy Results AMB Urinalysis, Automated 2 UA Leukoctes 0 Corrie/uL Last Edit by Franchesca Avila MA on 10/31/24 13:12 UA Nitrite Negative Last Edit by Franchesca Avila MA on 10/31/24 13:12 UA Urobilinogen 0.2 mg/dL Last Edit by Franchesca Avila, MD on 10/31/24 13:12 UA Protein 15 mg/dL Last Edit by Franchesca Avila, MD on 10/31/24 13:12 UA pH 6.0 Last Edit by Franchesca Avila, MD on 10/31/24 13:12 UA Blood 0 Jakob/uL Last Edit by Franchesca Avila, MD on 10/31/24 13:12 UA Specific [place] 1.015 Last Edit by Franchesca Avila, MD on 10/31/24 13:12 UA Ketone Negative Last Edit by Franchesca Avila, MD on 10/31/24 13:12 UA Bilirubin 0 mg/dL Last Edit by Franchesca Avila, MD on 10/31/24 13:12 UA Glucose 1000 mg/dL Last Edit by Franchesca Avila, MD on 10/31/24 13:12 Results Reviewed Results Reviewed: Collected: 05/30/24 Location: [facility] Received: 05/30/24 Diagnosis A: Left base lateral: Atypical glands, suspicious for adenocarcinoma. B: Left base medial: Benign prostatic tissue. C: Left mid lateral: Prostatic adenocarcinoma, Hooker score 6 (3+3), grade group 1, 1.5 mm, 8% of core, perineural invasion, and prostatic intraepithelial neoplasia. D: Left mid medial: Atypical glands, suspicious for adenocarcinoma. E: Left apex lateral: Benign prostatic tissue. F: Left apex medial: Benign prostatic tissue. G: Right base lateral: Benign prostatic tissue. H: Right base medial: Benign prostatic tissue. I: Right mid lateral: Prostatic adenocarcinoma, Josias score 6 (3+3), grade group 1, 0.3 mm, 2% of core. J: Right mid medial: Atypical glands, suspicious for focal prostatic intraepithelial neoplasia. K: Right apex lateral: Prostatic adenocarcinoma, Josias score 6 (3+3), grade group 1, 3 mm, 20% of core. L: Right apex medial: Prostatic adenocarcinoma, Josias score 6 (3+3), grade group 1, 0.5 mm, 3% of core, and focal prostatic intraepithelial neoplasia. Data synopsis - Prostate needle biopsy Histologic type: Adenocarcinoma, acinar type Histologic grade: Josias score: 6 (3+3) % of pattern 4: 0 % of pattern 5: 0 Grade group: 1 Tumor quantitation: Number cores positive: 4 Patient: [facility]rell Rios [facility]: 58[id number] MR#: [id number] Page 1 of 4 Surgical Pathology [id number] Total number of cores: 13 % of tissue involved: 3% Periprostatic fat inv.: Not identified Seminal vesicle inv.: Not identified Perineural inv.: Present Lymphatic and/or blood vessel invasion: Not identified Clinical History Elevated PSA Microscopic Description Microscopic sections reviewed. Sections show multiple needle cores of prostate gland parenchyma which are variably involved by prostatic adenocarcinoma ranging from 2-20% of the cores. The tumor is composed of well-formed glands, Hooker score 6(3+3), with mildly pleomorphic nuclei and relatively distinct nucleoli. Focal perineural invasion is identified in part C. There is no evidence of lymphovascular invasion, or extraprostatic extension. PIN4 multiplex stain is performed with results on the areas of interest as follows: Suspicious glands in Part A show positive P504S and negative HMWkeratin and p63. Part B shows patchy P504S staining similar to background, with positive HMWkeratin and p63. Part D shows positive P504S and rare basal cells on HMWkeratin and p63. Part I shows positive P504S and negative HMWkeratin and p63. Part J shows an area suspicious for focal PIN on H&E stain, however this area is disrupted on the immunostained slide. Part K shows positive P504S and negative HMWkeratin and p63. Part L shows shows positive P504S and few basal cells in prostatic intraepithelial neoplasia, and positive P504S and negative HMWkeratin and p63 in invasive tumor. Controls stain appropriately. Material Received A: Left base lateral B: Left base medial C: Left mid lateral D: Left mid medial E: Left apex lateral F: Left apex medial G: Right base lateral H: Right base medial I: Right mid lateral J: Right mid medial K: Right apex lateral L: Right apex medial Assessment & Plan Assessment & Plan Orders: Orders AMB Urinalysis Automated Today Z13.9 - Encounter for screening, unspecified Medications: New finasteride (Proscar) 5 mg PO DAILY 90 tabs 3RF Coding
== END 2024-10-31 11:21 | disposition home or self-care (01) ==
LOC: HO.HUSH 09:48
PROVIDERS: Visit Provider Urology
DX: Z13.9 Encounter for screening, unspecified (principal)

== ENCOUNTER → 2024-10-31 09:48 | Outpatient (BNVA) | payer MEDICAID, SELFPAY | PROVIDERS: Visit Provider Urology | DX: C61 Malignant neoplasm of prostate (principal); R97.20 Elevated prostate specific antigen [PSA]; N52.9 Male erectile dysfunction, unspecified; E11.9 Type 2 diabetes mellitus without complications | CPT/HCPCS: 81003; 99212 ==

== ENCOUNTER 2024-11-05 09:33 | Outpatient (REF) | payer MEDICAID, SELFPAY ==
--- NOTE | ~2024-11-05 | XR_ITS ---
EXAMINATION: XR CHEST CLINICAL INFORMATION: Positive Tspot, positive TB test COMPARISON: None available. TECHNIQUE: 2 views of the chest were obtained. FINDINGS: Lungs are clear. No calcified granulomas or lymph nodes are evident. Heart size normal. XR/XR chest 2V IMPRESSION: No acute disease and no evidence of chronic granulomatous disease. Electronically signed by: Balta Nelson MD 11/05/2024 10:30 AM EDT
--- OUTSIDE RECORDS SUMMARY | 2024-11-05 10:44 | XMS_ITS | Clinical Summary ---
Author Organization [employer] Address [address] [place] [address] Care Team Providers Care Production Wood Craftsman Name Role Phone Unavailable Primary Care Provider Unavailabl e Allergies No known active allergies Medications tadalafil (Cialis) 5 MG tablet Take 1 tablet by mouth Once per day. 10/15/19 25 Active losartan-hydro CHLOROthiazide (Hyzaar) 50-12.5 MG tablet Take 1 tablet by mouth Once per day. 90 tablet 1 10/24/19 25 026 Active atorvastatin (Lipitor) 20 MG tablet Take 1 tablet (20 mg) by mouth Once per day. 90 tablet 1 10/24/19 25 026 Active dapagliflozin (Farxiga) 10 MG Take 1 tablet (10 mg) by mouth Once per day. 90 tablet 1 10/24/19 25 026 Active metFORMIN XR (Glucophage-XR ) 500 MG 24 hr tablet Take 2 tablets (1,000 mg) by mouth with evening meal. Do not crush, chew, or split. 180 tablet 1 10/24/19 25 026 Active FREESTYLE LITE test strip Use to test blood sugar 2 times daily 100 each 10/24/19 25 026 Active Lancets misc Use to test blood sugar 2 times daily 100 each 10/24/19 25 Active Alcohol Swabs 70 % pads Use to test blood sugar 2 times daily 100 each 10/24/19 25 Active Blood Glucose Monitoring Suppl (FreeStyle [place] Lite) w/Device kit Use to test blood sugar 2 times daily 1 kit 10/24/19 25 Active cholecalcifero l (Vitamin D-3) 50 MCG (1999) capsule Take 1 capsule (50 mcg) by mouth Once per day. 90 capsule 3 11/05/19 25 026 Active losartan-hydro CHLOROthiazide (Hyzaar) 50-12.5 MG tablet Take 1 tablet by mouth Once per day. 025 Discontinued(Re order (will not trigger notification to Pharmacy)) dapagliflozin (Farxiga) 10 MG 12/12/19 24 025 Discontinued(Re order (will not trigger notification to Pharmacy)) atorvastatin (Lipitor) 20 MG tablet 11/19/19 24 025 Discontinued(Re order (will not trigger notification to Pharmacy)) empagliflozin- metFORMIN (Synjardy) 12.5-1000 MG 11/19/19 24 025 Discontinued(Re order (will not trigger notification to Pharmacy)) empagliflozin- metFORMIN (Synjardy) 12.5-1000 MG Take 1 tablet by mouth with breakfast and with evening meal. 180 tablet 1 10/24/19 025 Discontinued Active Problems Problem Noted Date Diagnosed Date Type 2 diabetes mellitus 10/23/2024 Essential hypertension 10/23/2024 Proliferative diabetic retinopathy 10/23/2024 Prostatic adenocarcinoma 10/23/2024 Encounters Date Type Department Care Team Description 11/05/2024 Orders Only [facility] [address] [place] [address] Anne Oliva DO 11/04/2024 Refill [facility] [address] [place] [address] Olive Jerry, JOHNSON Positive TB test 10/24/2024 2:30 PM EDT Office Visit [facility] [address] [place], [place] [phone] Keyonna Stroud, RAJINDER Proliferative diabetic retinopathy of both eyes with macular edema associated with type 2 diabetes mellitus (CMS/HCC) (Primary Dx); Combined form of age-related cataract, left eye; Open angle with borderline findings, low risk, bilateral 10/24/2024 Travel 10/24/2024 Telephone [facility] [address] [place], [place] [phone] Sherron Bethea MD 10/23/2024 9:00 AM EDT Office Visit [facility] [address] [place] [address] Anne Oliva DO 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, without long-term current use of insulin, unspecified retinopathy severity (CMS/HCC) (Primary Dx); 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, unspecified proliferative retinopathy type (CMS/HCC); Essential hypertension; Prostatic adenocarcinoma (CMS/HCC) 10/23/2024 Travel from Last 3 Months Social History Tobacco Use Types Packs/Day Years Used Date Smoking Tobacco: Never Smokeless Tobacco: Never Tobacco Cessation:Counseling Given: Not Answered Sex and Gender Information Value Date Recorded Sex Assigned at Male 10/23/2024 8:33 AM EDT Legal Sex Male 10:42 AM EDT Gender Identity Male 10/23/2024 8:33 AM EDT Sexual Orientation Straight 10/23/2024 8: 33 AM EDT Last Filed Vital Signs Vital Sign Reading Time Taken Comments Blood Pressure 129/73 10/23/2024 8:44 AM EDT Pulse 54 10/23/2024 8:44 AM EDT Temperature 37.1 C (98.8 F) 10/23/2024 8:44 AM EDT Respiratory Rate 18 10/23/2024 8:44 AM EDT Oxygen Saturation 99% 10/23/2024 8:44 AM EDT Inhaled Oxygen Concentration - - Weight 73.6 kg (162 lb 3.2 oz) 10/23/2024 8:44 A M EDT Height - - Body Mass Index - - Plan of Treatment Upcoming Encounters Date Type Department Care Team (Late st Contact Info) Description 04/27/2025 9:00 AM EST Office Visit [facility] [address] [place] [address] Keyonna Stroud, OD [address] [place] [address] Health Maintenance Due Date Last Done Comments CT Colonography 1967 Colonoscopy 1967 Colorectal Cancer Screening 1967 Depression Screening 1967 FIT DNA/Cologuard 1967 FIT 1967 FOBT 1967 SDOH Screening 1967 Sigmoidoscopy 1967 Disability Screening 1967 Diabetes: Foot Exam 12/02/1977 Alcohol/Substance Use Screening 1979 DTaP/Tdap/Td Vaccines (1 - Tdap) 12/02/1986 Hepatitis B Vaccines (1 of 3 - 19+ 3-dose series) 12/02/1986 Pneumococcal Vaccine: 50+ Years (1 of 2 - PCV) 12/02/1986 Zoster Vaccines (1 of 2) 12/02/2017 COVID-19 Vaccine (1 - 2023- season) 2024 Influenza Vaccine (Season Ended) 2025 Diabetes: Hemoglobin A1C 01/23/2025 10/23/2024, 10/12 Diabetes: Urine Protein Screening 10/23/2025 10/23/2024 Lipid Panel 10/23/2025 10/23/2024 Eye Exam 10/24/2025 10/24/2024, 10/12, 10/24/2024, Additional history exists Tobacco Screening 10/24/2025 10/24/2024 RSV Patients and Patients Aged 60 years or older (1 - 1-dose 75+ series) 12/02/2042 HIV Screening Completed 10/23/2024 Hepatitis C Screening Completed 10/23/2024 HIB Vaccines Aged Out No longer eligi ble based on patient's age to complete this topic HPV Vaccines Aged Out No longer eligi ble based on patient's age to complete this topic Hepatitis A Vaccines Aged Out No long er eligible based on patient's age to complete this topic IPV Vaccines Aged Out No longer eligi ble based on patient's age to complete this topic Meningococcal B Vaccine Aged Out No l onger eligible based on patient's age to complete this topic Meningococcal Vaccine Aged Out No ana maria terri eligible based on patient's age to complete this topic RSV under 20 months Aged Out No longe r eligible based on patient's age to complete this topic Rotavirus Vaccines Aged Out No longer eligible based on patient's age to complete this topic Procedures Procedure Name Priority Date/Time Associated Diagnosis Comments XR CHEST 2 VIEWS Routine 11/05/2024 9:13 AM EDT OCT, RETINA - OU - BOTH EYES Routine 10/24/2024 4:20 PM EDT Proliferative diabetic retinopathy of both eyes with macular edema associated with type 2 diabetes mellitus (CMS/HCC) T-SPOT(R).TB Routine 10/23/2024 9:46 AM EDT 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, without long-term current use of insulin, unspecified retinopathy severity (CMS/HCC) Essential hypertension HEPATITIS B CORE AB TOTAL Routine 10/23/2024 9:46 AM EDT 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, without long-term current use of insulin, unspecified retinopathy severity (CMS/HCC) Essential hypertension HEPATITIS A ANTIBODY, TOTAL Routine 10/23/2024 9:46 AM EDT 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, without long-term current use of insulin, unspecified retinopathy severity (CMS/HCC) Essential hypertension HEPATITIS B SURFACE ANTIBODY, QUALITATIVE Routine 10/23/2024 9:46 AM EDT 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, without long-term current use of insulin, unspecified retinopathy severity (CMS/HCC) Essential hypertension RPR (MONITOR) W/REFL TITER Routine 10/23/2024 9:46 AM EDT 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, without long-term current use of insulin, unspecified retinopathy severity (CMS/HCC) Essential hypertension HEPATITIS C AB W/REFL TO HCV RNA, QN, PCR Routine 10/23/2024 9:46 AM EDT 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, without long-term current use of insulin, unspecified retinopathy severity (CMS/HCC) Essential hypertension HIV 1/2 ANTIGEN/ANTIBODY, FOURTH GENERATION W/RFL Routine 10/23/2024 9:46 AM EDT 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, without long-term current use of insulin, unspecified retinopathy severity (CMS/HCC) Essential hypertension HEPATITIS B SURFACE ANTIGEN, EIA Routine 10/23/2024 9:46 AM EDT 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, without long-term current use of insulin, unspecified retinopathy severity (CMS/HCC) Essential hypertension ALBUMIN, RANDOM URINE W/CREATININE Routine 10/23/2024 9:46 AM EDT 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, without long-term current use of insulin, unspecified retinopathy severity (CMS/HCC) Essential hypertension CBC Routine 10/23/2024 9:46 AM EDT 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, without long-term current use of insulin, unspecified retinopathy severity (CMS/HCC) Essential hypertension BASIC METABOLIC PANEL Routine 10/23/2024 9:46 AM EDT 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, without long-term current use of insulin, unspecified retinopathy severity (CMS/HCC) Essential hypertension HEMOGLOBIN A1C Routine 10/23/2024 9:46 AM EDT 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, without long-term current use of insulin, unspecified retinopathy severity (CMS/HCC) Essential hypertension HEPATIC FUNCTION PANEL Routine 10/23/2024 9:46 AM EDT 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, without long-term current use of insulin, unspecified retinopathy severity (CMS/HCC) Essential hypertension TSH Routine 10/23/2024 9:46 AM EDT 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, without long-term current use of insulin, unspecified retinopathy severity (CMS/HCC) Essential hypertension LIPID PANEL, STANDARD Routine 10/23/2024 9:46 AM EDT 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, without long-term current use of insulin, unspecified retinopathy severity (CMS/HCC) Essential hypertension VITAMIN D,25-OH,TOTAL,IA Routine 10/23/2024 9:46 AM EDT 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, without long-term current use of insulin, unspecified retinopathy severity (CMS/HCC) Essential hypertension T4, FREE Routine 10/23/2024 9:46 AM EDT 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, without long-term current use of insulin, unspecified retinopathy severity (CMS/HCC) Essential hypertension CHLAMYDIA/N. GONORRHOEAE RNA, TMA, UROGENITAL Routine 10/23/2024 9:46 AM EDT 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, without long-term current use of insulin, unspecified retinopathy severity (CMS/HCC) Essential hypertension POCT GLYCATED HEMOGLOBIN, TOTAL Routine 10/23/2024 9:29 AM EDT 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, without long-term current use of insulin, unspecified retinopathy severity (CMS/HCC) POCT GLUCOSE Routine 10/23/2024 9:29 AM EDT 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, without long-term current use of insulin, unspecified retinopathy severity (CMS/HCC) from Last 3 Months Results * XR Chest 2 Views (11/05/2024 9:13 AM EDT) Anatomical Region Laterality Modality Chest Radiographic Evy ging 11/05/2024 9:13 AM EDT Narrative 11/05/2024 10:34 AM EDT [address] [address] XRay Report Signed Patient: Dontrell Rios MR#: [id number] : 1965 Acct:[id number] Age/Sex: 58 / M ADM Date: 11/05/24 [facility] Att[facility] Dr: Anne Oliva DO Ordering Physician: Anne Oliva DO Date of Service: 11/05/24 Procedure(s): XR chest 2V Accession Number(s): [id number] cc: Anne Oliva DO EXAMINATION: XR CHEST CLINICAL INFORMATION: Positive Tspot, positive TB test COMPARISON: None available. TECHNIQUE: 2 views of the chest were obtained. FINDINGS: Lungs are clear. No calcified granulomas or lymph nodes are evident. Heart size normal. XR/XR chest 2V IMPRESSION: No acute disease and no evidence of chronic granulomatous disease. Electronically signed by: Balta Nelson MD 11/05/2024 10:30 AM EDT RP Dictated By: Balta Nelson MD Signed By: <Electronically signed by Balta Nelson MD in OV> 11/05/24 1030 DD/ 0913 TD/TT: 11/05/24 1000 Gaming Host: Procedure Note Donotuseinterpreter, Image - 11/05/[address] [address] XRay Report Signed Patient: Dontrell RiosMR#: [id number] : 1965Acct:[id number] Age/Sex: 58 / MADM Date: 11/05/24 Loc: [facility] Attending Dr: Anne Oliva DO Ordering Physician: Anne Oliva DO Date of Service: 11/05/24 Procedure(s): XR chest 2V Accession Number(s): [id number] cc: Anne Oliva DO EXAMINATION: XR CHEST CLINICAL INFORMATION: Positive Tspot, positive TB test COMPARISON: None available. TECHNIQUE: 2 views of the chest were obtained. FINDINGS: Lungs are clear. No calcified granulomas or lymph nodes are evident. Heart size normal. XR/XR chest 2V IMPRESSION: No acute disease and no evidence of chronic granulomatous disease. Electronically signed by: Balta Nelson MD 11/05/2024 10:30 AM EDT RP Dictated By: Balta Nelson MD Signed By: <Electronically signed by Balta Nelson MD in OV> 11/05/24 1030 DD/ 0913 TD/TT: 11/05/24 1000 Gaming Host: Anne Pj DO IMG XR PROCEDURES Final Resu lt * OCT, Retina - OU - Both Eyes (10/24/2024 4:20 PM EDT) Victoria LuanneTravonKeyonna, OD - 10/24/2024 4:20 PM EDT Images from the original result were not included. OCT RETINA INTERPRETATION Optical Coherence Tomography Interpretation Report Reliability: OD: SS 29 - poor quality image OS: SS 27 - poor quality image Test findings: OD: Dense fibrous membranes causing retinal traction, (+) tractional schisis, (+) large pockets of intraretinal fluid. Some areas of signal disruption from fibrovascular nets. OS: (+) preretinal hemorrhage (+) vitreous hemorrhage, (+) fibrovascular traction temporal to ONH, (+) intraretinal fluid with exudates. Impression and Plan: PDR both eyes (OU) with new PRH/VH OS. Referral placed for panretinal photocoagulation (PRP) left eye (OS) us Keyonna Stroud OD OPHTH TOMOGRAPHY Final Result * (ABNORMAL) Vitamin D, 25-Hydroxy, Total, Immunoassay (10/23/2024 9:46 AM EDT) Vitamin D 25-OH Total 28.3(L) >30 ng/mL [facility] Comment: Health Based Reference Values*< 20 ng/mL Lrykzxdvm00-80 ng/mL Insufficient> 30 ng/mL Sufficient*Perla ARMSTRONG. N Engl J Med. 2007;357:266-280There is no well-established upper level of normal vitamin Dlevels. Some laboratories use 50 ng/mL as an upper limit ofnormal. However, toxicity is patient-dependent and may occurat any level. Careful correlation with the patient'spresentation is necessary and, if there is concern forvitamin D toxicity, treatment should be consideredirrespective of the serum level.Care must be taken in interpreting Vitamin D results fromdifferent laboratories and methodologies. Published datademonstrated that results from patients undergoinghemodialysis may show a negative bias when tested withvarious automated 25-OH vitamin D assays when compared toLC-MS/MS.When testing samples from patients whose predominant form ofVitamin D is Vitamin D2, such as patients receiving VitaminD2 supplementation, results that are subtherapeutic shouldbe confirmed with another method such as LC-MS/MS. Blood Venous blood specimen / Unknown 10/23/2024 9:46 AM EDT 10/23/2024 11:12 AM EDT us Anne Oliva DO LAB BLOOD ORDERABLES Final R esult [facility] [address] [place] [phone] * (ABNORMAL) T-SPOT??.TB (10/23/2024 9:46 AM EDT) T Spot TB Positive( A) Negative [facility] Comment: Diagnosing or excluding tuberculosis (TB) disease andassessing the probability of latent TB infection (LTBI)requires a combination of epidemiological, historical,medical and diagnostic findings that should be takeninto consideration when interpreting T-SPOT.TB testresults. A positive test result does not rule in activeTB disease caused by Mycobacterium tuberculosis(M. tuberculosis); active TB disease should beconfirmed by other tests such as sputum smear andculture, PCR, and chest radiography.Uncommonly, a positive T-SPOT.TB result may be due toinfection with other Mycobacterium species includingM. kansasii, M. szulgai, M. gordonae, or M. marinum.Alternative tests would be required if these infectionsare suspected.The T-SPOT.TB test is qualitative and results arereported as positive, borderline, or negative, giventhat the test controls perform as expected. In linewith the Centers for Disease Control and Prevention's2010 recommendation to report quantitative measurementsalongside the qualitative result, the laboratoryprovides spot counts for informational purposes only.The T-SPOT.TB test should not be interpreted as aquantitative test. TS PANEL A 86 [facility] TS PANEL B 109 [facility] Negative Control Passed [facility] Positive Control Passed [facility] Comment:For additional infor archie, please refer tohttp://education.Westcrete/faq/BSX431(This link is being provided for informational/educational purposes only.)THIS TEST WAS PERFORMED AT:[employer] [id number] [place] [id number] ROMERO MD,PHD 10/23/2024 9:46 AM EDT 10/23/2024 11:12 AM EDT us Anne Oliva DO LAB BLOOD ORDERABLES Final R esult Performing Organization Address [facility] de Phone Number [facility] [address] [place] [phone] * (ABNORMAL) Albumin, Random Urine W/Creatinine (10/23/2024 9:46 AM EDT) Creatinine, Urine 109.68 mg/dL [facility] Microalbumin Urine 73.0 mg/L [facility] Microalbum Creatinine Ratio Ur 66.5(H) <30 ug/mg cr [facility] Comment:Albumin/Creatinine R atio Reference Ranges: Normal: < 30 ug/mg creatinine Microalbuminuria: 30 - 300 ug/mg creatinineClinical Albuminuria: > 300 ug/mg creatinine Urine (Urine, Random) 10/23/2024 9:46 AM EDT 10/23/2024 11:09 AM EDT us Anne Oliva DO LAB URINE ORDERABLES Final R esult Performing Organization Address [facility] Co de Phone Number [facility] [address] [place] [phone] * Hepatitis C Antibody with Reflex to HCV, RNA, Quantitative, Real-Time PCR (10/23/2024 9:46 AM EDT) [facility] Hepatitis C Antibody Nonreactive Nonreactive [facility] Comment:Antibodies to HCV no t detected; does not exclude early acuteHCV infection. Blood Venous blood specimen / Unknown 10/23/2024 9:46 AM EDT 10/23/2024 11:12 AM EDT [facility] BLOOD ORDERAB[facility] Final R esult Performing Organization Address [facility] Co de Phone Number [facility] [address] [place] [phone] * Hepatitis A Antibody, Total (10/23/2024 9:46 AM EDT) [facility] Hepatitis A Antibody IgG REACTIVE Nonreactive [facility] Comment:The presence of IgG anti-HAV implies past HAV infection(recent or distant) or vaccination against HAV. Blood Venous blood specimen / Unknown 10/23/2024 9:46 AM EDT 10/23/2024 11:12 AM EDT [facility] BLOOD ORDERABLES Final R [facility] Performing Organization Address [facility] de Phone Number [facility] [address] [place] [phone] * Chlamydia/N. Gonorrhoeae RNA, TMA, Urogenitial (10/23/2024 9:46 AM EDT) [facility] CT PCR NOT DETECTED Not Detect. [facility] Comment:A not detected test result does not exclude the possibilityof infection because test results can be affected byimproper specimen collection, concurrent antibiotic therapy,or the number of organisms in the specimen which may bebelow the sensitivity of the test. As with many diagnostictests, results from the Xpert CT/NG assay should beinterpreted in conjunction with other laboratory andclinical data available to the clinician.Xpert CT/NG performance has not been evaluated in patientsless than 14 years of age. The assay should not be used forthe evaluationof suspected sexual abuse or for other medico-legalindications. Additional testing is recommended in anycircumstance when false positive or false negative resultscould lead to adverse medical, social or psychologicalconsequences. NG PCR NOT DETECTED Not Detect. [facility] Comment:A not detected test result does not exclude the possibilityof infection because test results can be affected byimproper specimen collection, concurrent antibiotic therapy,or the number of organisms in the specimen which may bebelow the sensitivity of the test. As with many diagnostictests, results from the Xpert CT/NG assay should beinterpreted in conjunction with other laboratory andclinical data available to the clinician.Xpert CT/NG performance has not been evaluated in patientsless than 14 years of age. The assay should not be used forthe evaluationof suspected sexual abuse or for other medico-legalindications. Additional testing is recommended in anycircumstance when false positive or false negative resultscould lead to adverse medical, social or psychologicalconsequences. Urine Urethral structure / Unknown 10/23/2024 9:46 AM EDT 10/23/2024 11:09 AM EDT Narrative [facility] - 10/23/2024 2:20 PM EDT Urine Anne Oliva DO LAB MICROBIOLOGY - GENERAL O RDERABLES Final Result Performing Organization Address [facility]/ZIP Co de Phone Number [facility] [address] [place] [phone] * Hepatitis B surface antigen, EIA (10/23/2024 9:46 AM EDT) Hepatitis B Surface Ag Negative Negative [facility] Blood Venous blood specimen / Unknown 10/23/2024 9:46 AM EDT 10/23/2024 11:12 AM EDT us Anne Oliva DO LAB BLOOD ORDERABLES Final R esult Performing Organization Address [facility] Co de Phone Number [facility] [address] [place] [phone] * Hepatitis B Core Antibody, Total (10/23/2024 9:46 AM EDT) Hepatitis B Core Antibody Nonreactive Nonreactive [facility] Blood Venous blood specimen / Unknown 10/23/2024 9:46 AM EDT 10/23/2024 11:12 AM EDT Anne Pj LAB BLOOD ORDERABLES Final R esult Performing Organization Address [facility] Co de Phone Number [facility] [address] [place] [phone] * RPR (Monitor) with Reflex to??Titer (10/23/2024 9:46 AM EDT) RPR (Monitor) w/Refl Titer NON-REACTI VE NON-REACT VIMAL [facility] Comment:THIS TEST WAS PERFOR MED AT:[facility] [place] [phone] ARMENDARIZ MD Rapid Plasma Reagin Ab Titer TNP [facility] Blood Venous blood specimen / Unknown 10/23/2024 9:46 AM EDT 10/23/2024 11:12 AM EDT us Anne Pj LAB BLOOD ORDERABLES Final R esult Performing Organization Address [facility] de Phone Number [facility] [address] [place] [phone] [phone] * HIV-1/2 Antigen and Antibodies, Fourth Generation, with Reflexes (10/23/2024 9:46 AM EDT) HIV AB/AG Nonreactive Nonreactive [facility] Comment:HIV-1 p24 Ag and/or HIV-1/HIV-2 Ab not detected.A test result that is nonreactive does not exclude thepossibility of exposure to or infection with HIV-1 and/orHIV-2. Nonreactive results in this assay for individualswith prior exposure to HIV-1 and/or HIV-2 may be due toantigen and antibody levels that are below the limit ofdetection of this assay.The [employer] HIV Ag/Ab Combo assay result andsupplemental assay results should be interpreted inconjunction with the patient's clinical presentation,history and other laboratory results. If the results areinconsistent with clinical evidence, additional testing issuggested to confirm the result. Blood Venous blood specimen / Unknown 10/23/2024 9:46 AM EDT 10/23/2024 11:12 AM EDT Anne Oliva DO LAB BLOOD ORDERABLES Final R esult Performing Organization Address [facility]/ZIP Co de Phone Number [facility] [address] [place] [phone] * Hepatitis B Surface Antibody, Qualitative (10/23/2024 9:46 AM EDT) ~Hepatitis B Surface Antibody NONREACTIVE Nonreactive [facility] Comment:Nonreactive: < 8.00 mIU/mL Blood Venous blood specimen / Unknown 10/23/2024 9:46 AM EDT 10/23/2024 11:12 AM EDT us Anne Oliva DO LAB BLOOD ORDERABLES Final R esult Performing Organization Address [facility]/ZIP Co de Phone Number [facility] [address] [place] [phone] * CBC (10/23/2024 9:46 AM EDT) White Blood Count 8.6 4.8 - 10.8 X10*3/uL [facility] Red Blood Count 5.36 4.60 - 5.80 X10*6/uL [facility] Hemoglobin 15.4 14.0 - 18.0 g/dl [facility] Hematocrit 45.6 42.0 - 52.0 % [facility] Mean Corpuscular Volume 85.1 80.0 - 98.0 fL [facility] Mean Corpuscular Hemoglobin 28.7 27.0 - 33.0 pg [facility] Mean Corpuscular HGB Conc 33.8 31.0 - 36.0 g/dl [facility] Red Cell Distribution Width 12.7 11.0 - 16.0 % [facility] Platelet Count 205 160 - 400 X10*3/uL [facility] Mean Platelet Volume 11.1 9.4 - 12.4 fL [facility] NRBC Pct Auto 0.0 0.0 - 0.2 /100WBC [facility] NRBC Abs Auto 0.000 0.0 - 0.012 X10*3/uL [facility] Blood Venous blood specimen / Unknown 10/23/2024 9:46 AM EDT 10/23/2024 11:12 AM EDT Anne Oliva LAB BLOOD ORDERABLES Final R esult Performing Organization Address City/[facility]/ZIP Co de Phone Number [facility] [address] [place] [phone] * TSH (10/23/2024 9:46 AM EDT) Pathologist [facility] Thyroid Stimulating Hormone 0.52 0.32 - 4.0 uIU/mL [facility] Comment:TSH 3rd Generation ( [facility]) Blood Venous blood specimen / Unknown 10/23/2024 9:46 AM EDT 10/23/2024 11:12 AM EDT Anne Oliva DO LAB BLOOD ORDERABLES Final R esult Performing Organization Address City/[facility]/ZIP Co de Phone Number [facility] [address] [place] [address] [phone] * T4, Free (10/23/2024 9:46 AM EDT) Free T4 (Free Thyroxine) 0.96 0.71 - 1.85 ng/dL [facility] Blood Venous blood specimen / Unknown 10/23/2024 9:46 AM EDT 10/23/2024 11:12 AM EDT Anne Pj LAB BLOOD ORDERABLES Final R esult Performing Organization Address [facility] Co de Phone Number [facility] [address] [place] [phone] * (ABNORMAL) Hemoglobin A1c (10/23/2024 9:46 AM EDT) Hemoglobin A1c 7.0(H) <6.0 % [facility] Comment:Hemoglobin A1C Refer ence Range Adults: 4.8 - 6.0 % Non diabetic: < 6.0 % Goal: < 7.0 %Additional Action Suggested: > 8.0 %Note: Hemoglobin A1c results are invalid for patients with abnormal amounts of HbF. Blood transfusions may impact the HbA1c concentration in the patient sample. Estimated Average Glucose 154 mg/dL [facility] Comment:eAG = Estimated ave rage glucose which is %A1C expressed asaverage glucose, using the formula of the [id number] Glucose study (ADAG), Diabetes Care, Vol.31,#8,Dec. 2007 Blood Venous blood specimen / Unknown 10/23/2024 9:46 AM EDT 10/23/2024 11:12 AM EDT Anne Oliva LAB BLOOD ORDERABLES Final R esult Performing Organization Address [facility] Co de Phone Number [facility] [address] [place] [phone] * (ABNORMAL) Hepatic Function Panel (10/23/2024 9:46 AM EDT) Bilirubin, Total 0.6 0.0 - 1.0 mg/dL [facility] Bilirubin, Direct 0.2 0.0 - 0.5 mg/dL [facility] Aspartate Amino Transferase 68(H) 5 - 37 U/L [facility] Alanine Aminotransferase 30 0 - 40 U/L [facility] Total Protein 7.9 6.5 - 8.0 g/dL [facility] Albumin Level 4.7 3.5 - 5.0 g/dL [facility] Alkaline Phosphatase 80 39 - 117 U/L [facility] Blood Venous blood specimen / Unknown 10/23/2024 9:46 AM EDT 10/23/2024 11:12 AM EDT Anne Oliva DO LAB BLOOD ORDERABLES Final R esult [facility] [address] [place] [phone] * (ABNORMAL) Lipid Panel, Standard (10/23/2024 9:46 AM EDT) Triglycerides 167(H) <150 mg/dL [facility] Comment:Desirable Triglyceri de: less than 150 mg/dLBorderline High Triglyceride 150-199 mg/dLHigh Triglyceride: 200-499 mg/dLVery High Triglyceride: greater than or equal to 5OO mg/dL Cholesterol 141 <200 mg/dL [facility] Comment:Desirable Cholestero l: less than 200 mg/dLBorderline High Cholesterol: 200-239 mg/dLHigh Cholesterol: greater than 239 mg/dL LDL Cholesterol Calculated 71 <100 mg/dL [facility] Comment:Desirable LDL: less than 100 mg/dLNear Optimal/Above Optimal LDL: 110- 129 mg/dLBorderline High LDL: 130-159 mg/dLHigh LDL: 160-189 mg/dLVery High LDL: greater than or equal to 190 mg/dL HDL Cholesterol 37(L) >40 mg/dL [facility] Comment:Desirable HDL: great er than 40 mg/dL Note: This HDL assay may give artificially low results in patients with liver disease. Blood Venous blood specimen / Unknown 10/23/2024 9:46 AM EDT 10/23/2024 11:12 AM EDT Anne Oliva DO LAB BLOOD ORDERABLES Final R esult Performing Organization Address [facility] Co de Phone Number [facility] [address] [place] [phone] * (ABNORMAL) Basic Metabolic Panel (10/23/2024 9:46 AM EDT) Sodium 142 135 - 145 mmol/L [facility] Potassium 3.9 3.3 - 5.1 mmol/L [facility] Chloride 104 96 - 108 mmol/L [facility] Carbon Dioxide 29 22 - 29 mmol/L [facility] Anion Gap 13 12 - 20 [facility] Urea Nitrogen (BUN) 26(H) 9 - 16 mg/dL [facility] Creatinine, Serum 1.21 0.5 - 1.4 mg/dL [facility] Estimated Glomerular Filt Rate >60 [facility] Comment:Chronic Kidney Disea se: Estimated GFR < 60 mL/min/1.03n5Bsabwz Kidney Disease: Estimated GFR < 15 mL/min/1.73m2 Glucose 176(H) 60 - 115 mg/dL [facility] Calcium 9.9 8.4 - 10.2 mg/dL [facility] Blood Venous blood specimen / Unknown 10/23/2024 9:46 AM EDT 10/23/2024 11:12 AM EDT us Anne Oliva DO LAB BLOOD ORDERABLES Final R esult Performing Organization Address City/[facility]/ZIP Co de Phone Number [facility] [address] [place] [phone] * (ABNORMAL) POCT A1C (10/23/2024 9:29 AM EDT) Hemoglobin A1C 7.2(A) 4.0 - 6.0 % Blood 10/23/2024 9:29 AM EDT Anne Oliva DO POINT OF CARE TEST ENTER/MARISSA T ORDERABLES Final Result * POCT glucose manually resulted (10/23/2024 9:29 AM EDT) Glucose Blood, POC 164 60 - 200 mg/dL Blood Capillary blood specimen / Unknown 10/23/2024 9:29 AM EDT Anne Oliva DO POINT OF CARE TEST ENTER/MARISSA T ORDERABLES Final Result from Last 3 Months Insurance [facility] C3
== END 2024-11-05 09:34 | disposition home or self-care (01) ==
LOC: HO.HHCX 09:33
PROVIDERS: PCP Family Medicine; Visit Provider Family Medicine
DX: R76.11 Nonspecific reaction to tuberculin skin test without active tuberculosis (principal)
CPT/HCPCS: 71046

== ENCOUNTER → 2024-11-05 09:46 | Outpatient (BNV) | payer MEDICAID, SELFPAY | PROVIDERS: PCP Family Medicine; Visit Provider Radiology Diagnostic Radiology | DX: R76.11 Nonspecific reaction to tuberculin skin test without active tuberculosis (principal) | CPT/HCPCS: 71046 ==

== ENCOUNTER 2025-01-16 11:35 | Outpatient (REF) | payer MEDICAID, SELFPAY ==
--- OUTSIDE RECORDS SUMMARY | 2025-01-16 12:31 | XMS_ITS | Encounter Summary ---
Author Organization [facility] Address [address] [place] [phone] Phone Care Team Providers Care Superintendent [employer] Name Role Phone Sushant Grimm MD Primary Care Provider [phone] Encounter Details Date Type Department Care Team (Danis st Contact Info) Description 01/02/2024 Procedure Pass [facility] [address] [place] [phone] Social History Tobacco Use Types Packs/Day Years Used Date Smoking Tobacco: Never Smokeless Tobacco: Never Alcohol Use Standard Drinks/Week Comments Never 0 (1 standard drink = 0.6 oz pur e alcohol) Education Answer Date Recorded Are you interested in more education? Not on elo e 11/16/2023 Are you concerned about learning? Not on file 11/16/2023 No 11/16/2023 No 11/16/2023 Digital Access Answer Date Recorded No 11/16/2023 No 11/16/2023 Reliable internet access at home? Not on file 11/16/2023 Device with a working camera? Not on file Intimate Partner Violence Answer Date R ecorded Are you denied basic needs s uch as food, clothing, or medical care? No 01/02/2024 In the past 12 months have y ou been in a relationship with a person who hurts, threatens, or tries to control you? No 01/02/2024 Are you denied basic needs s uch as food, clothing, or medical care? No 01/02/2024 In the past 12 months have y ou been in a relationship with a person who hurts, threatens, or tries to control you? No 01/02/2024 Sex and Gender Information Value Date Recorded Sex Assigned at Male 11/16/2023 2:39 PM EDT Legal Sex Male 10:00 AM EDT Gender Identity Male 11/16/2023 2:39 PM EDT Sexual Orientation Straight 11/16/2023 2: 39 PM EDT documented as of this encounter Plan of Treatment Not on file documented as of this encounter Visit Diagnoses Not on filedocumented in this encounter Care Teams [employer] Relationship Specialty Start Date End Date Sushant Grimm MD [address] [place] [phone] [email or web address] PCP - General 11/16/23 documented as of this encounter Additional Source Comments The information contained in this document represents components of the legal health record. It is not the complete legal health record.[facility]
--- OUTSIDE RECORDS SUMMARY | 2025-01-16 12:31 | XMS_ITS | Clinical Summary ---
Author Organization [facility] Address [address] [facility] [address] [place] [phone] Phone Care Team Providers Care [employer] Knitter Name Role Phone Sushant Grimm MD Primary Care Provider [phone] Allergies No known active allergies Medications glimepiride (AMARYL) 1 MG tablet Take 1 mg by mouth daily before breakfast. Active FARXIGA 10 mg tablet 12/12/2023 Active SYNJARDY 12.5-1,000 mg per tablet 11/19/2023 Active atorvastatin (LIPITOR) 20 MG tablet 11/19/2023 Active losartan-hydroC HLOROthiazide (HYZAAR) 50-12.5 mg per tablet 11/19/2023 Active glimepiride (AMARYL) 4 MG tablet 11/19/2023 Active moxifloxacin (VIGAMOX) 0.5 % ophthalmic solution Place 1 drop into the right eye 4 (four) times a day. Start 2 days before surgery and continue for 7 days afterwards. 3 mL 2 12/30/2023 Active bromfenac 0.07 % Drop ophthalmic solution Place 1 drop into the right eye daily. Start 2 days before surgery and continue for 4 weeks after surgery. 3 mL 1 12/30/2023 Active prednisoLONE acetate (PRED FORTE) 1 % ophthalmic suspension Place 1 drop into the right eye 4 (four) times a day. Taper as instructed. Start AFTER surgery. 5 mL 1 01/24/2024 Active Active Problems No known active problems Social History Tobacco Use Types Packs/Day Years Used Date Smoking Tobacco: Never Smokeless Tobacco: Never Tobacco Cessation:Counseling Given: Not Answered Alcohol Use Standard Drinks/Week Comments Never 0 [...] Orientation Straight 11/16/2023 2: 39 PM EDT Last Filed Vital Signs Vital Sign Reading Time Taken Comments Blood Pressure 130/79 01/02/2024 1:01 PM EDT Pulse 73 01/02/2024 1:01 PM EDT Temperature 36.1 C (97 F) 01/02/2024 12:46 PM EDT Respiratory Rate 18 01/02/2024 1:01 PM EDT Oxygen Saturation 99% 01/02/2024 1:01 PM EDT Inhaled Oxygen Concentration - - Weight 89.8 kg (198 lb) 01/02/2024 11:08 AM EDT Height 172.7 cm (5' 8 ) 01/02/2024 11:08 AM EDT Body Mass Index 30.11 01/02/2024 11:08 AM EDT Plan of Treatment Health Maintenance Due Date Last Done Comments Adult Td,Tdap Booster 1967 CREATININE LEVEL 1967 HEMOGLOBIN A1C 1967 POTASSIUM LEVEL 1967 DEPRESSION SCREENING 1979 HEPATITIS C SCREENING 12/02/1985 HIV ONE-TIME SCREENING (18-65 YEARS) 12/02/1985 PNEUMOCOCCAL VACCINES (50+ years) (1 of 2 - PCV) 12/02/1986 COLOGUARD 12/02/2012 COLONOSCOPY 12/02/2012 COLORECTAL CANCER SCREENING 12/02/2012 FIT TEST 12/02/2012 FOBT 12/02/2012 SIGMOIDOSCOPY 12/02/2012 VIRTUAL COLONOSCOPY 12/02/2012 ZOSTER VACCINES (1 of 2) 12/02/2017 COVID-19 VACCINE (1 - 2023- season) 2024 BLOOD PRESSURE 05/28/2024 11/26/2023 INFLUENZA VACCINE (#1) 2024 DIABETIC EYE EXAM 03/04/2025 03/04/2024, , 03/04/2024, Additional history exists SMOKING STATUS SCREENING (Once After 26 Yrs) Completed 03/04/2024 HEPATITIS A VACCINES Aged Out No long er eligible based on patient's age to complete this topic HIB VACCINES Aged Out No longer eligi ble based on patient's age to complete this topic MENINGOCOCCAL VACCINES (ACWY) Aged Out No longer eligible based on patient's age to complete this topic MENINGOCOCCAL VACCINES (B) Aged Out N o longer eligible based on patient's age to complete this topic Medical Devices Implanted Type Area Production Team Advisor Device Identifier Shelf Expiration Date Model / Serial / Lot Lens Intraocular [place] Pre-Loaded Clear [id number] 22.0d - [id number] Implanted:Qty: 1 on 01/02/2024 by Mandeep Hernandes MD at [facility] Eye and Ear Right: Eye [employer]IE V[employer] Karaz 03/11/2027 [id number] 22.0D / [id number] / Insurance [facility] Care Teams Jersey Knitter Relationship Specialty Start Date End Date Sushant Grimm MD [address] [place] [address] PCP - General 11/16/23 Additional Source Comments The information contained in this document represents components of the legal health record. It is not the complete legal health record.[facility]
--- OUTSIDE RECORDS SUMMARY | 2025-01-16 12:31 | XMS_ITS | Clinical Summary ---
Author Organization [employer] Address [address] [facility] 7[address] [place] [address] Care Team Providers Care Plastic Tool Maker Name Role Phone Unavailable Primary Care Provider Unavailabl e Allergies No known active allergies Medications tadalafil (Cialis) 5 MG tablet Take 1 tablet by mouth Once per day. 10/14/2024 Active losartan-hydroC HLOROthiazide (Hyzaar) 50-12.5 MG tablet Take 1 tablet by mouth Once per day. 90 tablet 1 10/23/2024 6 Active atorvastatin (Lipitor) 20 MG tablet Take 1 tablet (20 mg) by mouth Once per day. 90 tablet 1 10/23/2024 6 Active dapagliflozin (Farxiga) 10 MG Take 1 tablet (10 mg) by mouth Once per day. 90 tablet 1 10/23/2024 6 Active metFORMIN XR (Glucophage-XR) 500 MG 24 hr tablet Take 2 tablets (1,000 mg) by mouth with evening meal. Do not crush, chew, or split. 180 tablet 1 10/23/2024 6 Active FREESTYLE LITE test strip Use to test blood sugar 2 times daily 100 each 10/23/2024 Active Lancets misc Use to test blood sugar 2 times daily 100 each 10/23/2024 Active Alcohol Swabs 70 % pads Use to test blood sugar 2 times daily 100 each 10/23/2024 Active Blood Glucose Monitoring Suppl (FreeStyle [place] Lite) w/Device kit Use to test blood sugar 2 times daily 1 kit 10/23/2024 Active cholecalciferol (Vitamin D-3) 50 MCG (1999 MD) capsule Take 1 capsule (50 mcg) by mouth Once per day. 90 capsule 3 11/04/2024 Active Active Problems Problem Noted Date Diagnosed Date Type 2 diabetes mellitus 10/23/2024 Essential hypertension 10/23/2024 Proliferative diabetic retinopathy 10/23/2024 Prostatic adenocarcinoma 10/23/2024 Encounters Date Type Department Care Team Description 01/14/2025 Population Health Risk Score [facility] ([facility]) Department [address] [phone] Provider, Population Health Generic 11/18/2024 Telephone [facility] MEDICINE [address] [place] [address] José Miguel Conn MD 11/05/2024 Orders Only [facility] MEDICINE [address] [place] [address] Anne Oliva DO 11/04/2024 Refill [facility] MEDICINE [address] [place] [address] Olive Jerry, JOHNSON Positive TB test 10/24/2024 2:30 PM EDT Office Visit [facility] OPTOMETRY [address] [place] [address] Keyonna Stroud, RAJINDER Proliferative diabetic retinopathy of both eyes with macular edema associated with type 2 diabetes mellitus (CMS/HCC) (Primary Dx); Combined form of age-related cataract, left eye; Open angle with borderline findings, low risk, bilateral 10/24/2024 Travel 10/24/2024 Telephone [facility] INS ENROLLMENT [address] [place] [address] Sherron Bethea MD 10/23/2024 9:00 AM EDT Office Visit [facility] WALK-IN CENTER [address] [place] [address] Anne Oliva DO Type 2 diabetes mellitus [...] Care Team (Late st Contact Info) Description 02/12/2025 9:30 AM EDT Office Visit [facility] MEDICINE [address] [place] [address] José Miguel Conn MD [address] [place] [address] 04/27/2025 9:00 AM EST Office Visit [facility] OPTOMETRY [address] [place] [address] Keyonna Stroud, OD [address] [place] [address] Health Maintenance Due Date Last Done Comments [...] of 2) 12/02/2017 COVID-19 Vaccine (1 - season) 2025 Influenza Vaccine (#1) 2025 Diabetes: Hemoglobin A1C 01/23/2025 10/23/2024, 10/12 [...] AM EDT Narrative 11/05/2024 10:34 AM EDT [address] [address] XRay Report Signed Patient: Dontrell Rios MR#: [id number] : 1965 Acct:[id number] Age/Sex: 58 / M ADM Date: 11/05/24 Loc: HO.HHCX Attending Dr: Anne Oliva DO Ordering Physician: Anne Oliva DO Date of Service: 11/05/24 Procedure(s): XR chest 2V Accession Number(s): [id number] cc: Anne Oliva DO EXAMINATION: XR CHEST [...] 11/05/24 1030 DD/ 0913 TD/TT: 11/05/24 1000 Tray Packer: Procedure Note Donotuseinterpreter, Image - 11/05/2024 [place] [address] XRay Report Signed Patient: Dontrell RiosMR#: [id number] : 1965Acct:[id number] Age/Sex: 58 / MADM Date: 11/05/24 Loc: HO.HHCX Attending Dr: Anne Oliva DO Ordering Physician: Anne Oliva DO Date of Service: 11/05/24 Procedure(s): XR chest 2V Accession Number(s): [id number] cc: Anne Oliva DO EXAMINATION: XR CHEST [...] 11/05/24 1030 DD/ 0913 TD/TT: 11/05/24 1000 Tray Packer: Anne Pj DO IMG XR PROCEDURES Final Resu lt * OCT, Retina - OU - Both Eyes (10/24/2024 4:20 PM EDT) Keyonna Trujillo, OD - 10/24/2024 4:20 PM EDT Images [...] Vitamin D 25-OH Total 28.3(L) >30 ng/mL [facility] Comment: Health Based Reference Values*< 20 ng/mL Fllhopvnf33-60 ng/mL Insufficient> 30 ng/mL Sufficient*Perla ARMSTRONG. N [...] DO LAB BLOOD ORDERABLES Final R esult [facility] [address] [place] [phone] [phone] * (ABNORMAL) T-SPOT??.TB (10/23/2024 9:46 AM EDT) T Spot TB Positive( A) Negative [facility] Comment: Diagnosing or excluding tuberculosis (TB) [...] as aquantitative test. TS PANEL A 86 [facility] TS PANEL B 109 [facility] Negative Control Passed [facility] Positive Control Passed [facility] Comment:For additional infor archie, please refer [email or web address].[email or web address]/faq/MRX966(This link is being provided for informational/educational purposes only.)THIS TEST WAS PERFORMED AT:[employer] [id number] [place] [id number] ROMERO MD,PHD 10/23/2024 9:46 AM EDT 10/23/2024 11:12 AM EDT Anne Pj LAB BLOOD ORDERABLES Final R esult Performing Organization Address [facility] Co de Phone Number [facility] [address] [place] [address] [phone] * (ABNORMAL) Albumin, Random Urine W/Creatinine (10/23/2024 9:46 AM EDT) Creatinine, Urine 109.68 mg/dL [facility] Microalbumin Urine 73.0 mg/L H [facility] Microalbum Creatinine Ratio Ur 66.5(H) <30 ug/mg cr [facility] Comment:Albumin/Creatinine R atio Reference Ranges: Normal: < 30 ug/mg creatinine Microalbuminuria: 30 - 300 ug/mg creatinineClinical Albuminuria: > 300 ug/mg creatinine Urine (Urine, Random) 10/23/2024 9:46 AM EDT 10/23/2024 11:09 AM EDT [facility] URINE ORDERABLES Final R esult Performing Organization Address [facility]/ZIP Co de Phone Number [facility] [address] [place] [phone] * Hepatitis C Antibody with Reflex to HCV, RNA, Quantitative, Real-Time PCR (10/23/2024 9:46 AM EDT) Hepatitis C Antibody Nonreactive Nonreactive [facility] Comment:Antibodies to HCV no t detected; does not exclude early acuteHCV infection. Blood Venous blood specimen / Unknown 10/23/2024 9:46 AM EDT 10/23/2024 11:12 AM EDT [facility] LAB BLOOD ORDERABLES Final R esult Performing Organization Address City/[facility]/ZIP Co de Phone Number [facility] [address] [place] [phone] * Hepatitis A Antibody, Total (10/23/2024 9:46 AM EDT) Hepatitis A Antibody IgG REACTIVE Nonreactive [facility] Comment:The presence of IgG anti-HAV implies past HAV infection(recent or distant) or vaccination against HAV. Blood Venous blood specimen / Unknown 10/23/2024 9:46 AM EDT 10/23/2024 11:12 AM EDT [facility] BLOOD ORDERABLES Final R esult Performing Organization Address [facility] Co de Phone Number [facility] [address] [place] [phone] * Chlamydia/N. Gonorrhoeae RNA, TMA, Urogenitial (10/23/2024 9:46 AM EDT) CT PCR NOT DETECTED Not Detect. [facility] Comment:A not detected test result does [...] psychologicalconsequences. NG PCR NOT DETECTED Not Detect. [facility] Comment:A not detected test result does [...] AM EDT 10/23/2024 11:09 AM EDT Narrative [facility] - 10/23/2024 2:20 PM EDT Urine Anne Oliva DO LAB MICROBIOLOGY - GENERAL O RDERABLES Final Result Performing Organization Address City/[facility]/ZIP Co de Phone Number [facility] [address] [place] [phone] * Hepatitis B surface antigen, EIA (10/23/2024 9:46 AM EDT) Hepatitis B Surface Ag Negative Negative [facility] Blood Venous blood specimen / Unknown 10/23/2024 9:46 AM EDT 10/23/2024 11:12 AM EDT Anne Oliva DO LAB BLOOD ORDERABLES Final R esult Performing Organization Address City/[facility]/ZIP Co de Phone Number [facility] [address] [place] [phone] * Hepatitis B Core Antibody, Total (10/23/2024 9:46 AM EDT) Hepatitis B Core Antibody Nonreactive Nonreactive [facility] Blood Venous blood specimen / Unknown 10/23/2024 9:46 AM EDT 10/23/2024 11:12 AM EDT Anne Marievalencia DO LAB BLOOD ORDERABLES Final R esult Performing Organization Address [facility] Co de Phone Number [facility] [address] [place] [phone] * RPR (Monitor) with Reflex to??Titer (10/23/2024 9:46 AM EDT) RPR (Monitor) w/Refl Titer NON-REACTI VE NON-REACT VIMAL [facility] Comment:THIS TEST WAS PERFOR MED AT:[employer] [place] [phone] ARMENDARIZ MD Rapid Plasma Reagin Ab Titer TNP [facility] Blood Venous blood specimen / Unknown 10/23/2024 9:46 AM EDT 10/23/2024 11:12 AM EDT us Anne Oliva DO LAB BLOOD ORDERABLES Final R esult Performing Organization Address [facility] Co de Phone Number [facility] [address] [place] [phone] * HIV-1/2 Antigen and Antibodies, Fourth Generation, with Reflexes (10/23/2024 9:46 AM EDT) HIV AB/AG Nonreactive Nonreactive [facility] Comment:HIV-1 p24 Ag and/or HIV-1/HIV-2 Ab not detected.A test result that is nonreactive does not exclude thepossibility of exposure to or infection with HIV-1 and/orHIV-2. Nonreactive results in this assay for individualswith prior exposure to HIV-1 and/or HIV-2 may be due toantigen and antibody levels that are below the limit ofdetection of this assay.The [employer] HIV Ag/Ab Combo assay result andsupplemental assay results should be interpreted inconjunction with the patient's clinical presentation,history and other laboratory results. If the results areinconsistent with clinical evidence, additional testing issuggested to confirm the result. Blood Venous blood specimen / Unknown 10/23/2024 9:46 AM EDT 10/23/2024 11:12 AM EDT Anne Pj LAB BLOOD ORDERABLES Final R esult Performing Organization Address [facility] Co de Phone Number [facility] [address] [place] [phone] * Hepatitis B Surface Antibody, Qualitative (10/23/2024 9:46 AM EDT) Pathologist [facility] ~Hepatitis B Surface Antibody NONREACTIVE Nonreactive [facility] Comment:Nonreactive: < 8.00 mIU/mL Blood Venous blood specimen / Unknown 10/23/2024 9:46 AM EDT 10/23/2024 11:12 AM EDT Anne Oliva DO LAB BLOOD ORDERABLES Final R ult Performing Organization Address [facility] [[email or web address]] de Phone Number [facility] [address] [place] [phone] * CBC (10/23/2024 9:46 AM EDT) [facility] White Blood Count 8.6 4.8 - 10.8 X10*3/uL [facility] Red Blood Count 5.36 4.60 - 5.80 X10*6/uL [facility] Hemoglobin 15.4 14.0 - 18.0 g/dl [facility] Hematocrit 45.6 42.0 - 52.0 % [facility] Mean Corpuscular Volume 85.1 80.0 - 98.0 fL [facility] Mean Corpuscular Hemoglobin 28.7 27.0 - 33.0 pg [facility] Mean Corpuscular HGB Conc 33.8 31.0 - 36.0 g/dl [facility] Red Cell Distribution Width 12.7 11.0 - 16.0 % [facility] Platelet Count 205 160 - 400 X10*3/uL [facility] Mean Platelet Volume 11.1 9.4 - 12.4 fL [facility] NRBC Pct Auto 0.0 0.0 - 0.2 /100WBC [facility] NRBC Abs Auto 0.000 0.0 - 0.012 X10*3/uL [facility] Blood Venous blood specimen / Unknown 10/23/2024 9:46 AM EDT 10/23/2024 11:12 AM EDT Anne Oliva LAB BLOOD ORDERABLES Final R esult Performing Organization Address [facility]/ZIP Co de Phone Number [facility] [address] [place] [phone] * TSH (10/23/2024 9:46 AM EDT) Thyroid Stimulating Hormone 0.52 0.32 - 4.0 uIU/mL [facility] Comment:TSH 3rd Generation ( [employer]) Blood Venous blood specimen / Unknown 10/23/2024 9:46 AM EDT 10/23/2024 11:12 AM EDT Anne Oliva LAB BLOOD ORDERABLES Final R esult Performing Organization Address City/[facility]/ZIP Co de Phone Number [facility] [address] [place] [phone] * T4, Free (10/23/2024 9:46 AM EDT) Free T4 (Free Thyroxine) 0.96 0.71 - 1.85 ng/dL [facility] Blood Venous blood specimen / Unknown 10/23/2024 9:46 AM EDT 10/23/2024 11:12 AM EDT Anne Oliva DO LAB BLOOD ORDERABLES Final R esult Performing Organization Address [facility] Co de Phone Number [facility] [address] [place] [phone] * (ABNORMAL) Hemoglobin A1c (10/23/2024 9:46 AM EDT) Hemoglobin A1c 7.0(H) <6.0 % [facility] Comment:Hemoglobin A1C Refer ence Range Adults: 4.8 - 6.0 % Non diabetic: < 6.0 % Goal: < 7.0 %Additional Action Suggested: > 8.0 %Note: Hemoglobin A1c results are invalid for patients with abnormal amounts of HbF. Blood transfusions may impact the HbA1c concentration in the patient sample. Estimated Average Glucose 154 mg/dL [facility] Comment:eAG = Estimated ave rage glucose which is %A1C expressed asaverage glucose, using the formula of the [id number]-[id number] Glucose study (ADAG), Diabetes Care, Vol.31,#8,Dec. 2007 Blood Venous blood specimen / Unknown 10/23/2024 9:46 AM EDT 10/23/2024 11:12 AM EDT Anne Marievalencia DO LAB BLOOD ORDERABLES Final R esult Performing Organization Address [facility] Co de Phone Number [facility] [address] [place] [phone] * (ABNORMAL) Hepatic Function Panel (10/23/2024 9:46 AM EDT) Bilirubin, Total 0.6 0.0 - 1.0 mg/dL [facility] Bilirubin, Direct 0.2 0.0 - 0.5 mg/dL [facility] Aspartate Amino Transferase 68(H) 5 - 37 U/L [facility] Alanine Aminotransferase 30 0 - 40 U/L [facility] Total Protein 7.9 6.5 - 8.0 g/dL [facility] Albumin Level 4.7 3.5 - 5.0 g/dL [facility] Alkaline Phosphatase 80 39 - 117 U/L [facility] Blood Venous blood specimen / Unknown 10/23/2024 9:46 AM EDT 10/23/2024 11:12 AM EDT Anne Oliva LAB BLOOD ORDERABLES Final R esult Performing Organization Address City/[facility] Co de Phone Number [facility] [address] [place] [phone] * (ABNORMAL) Lipid Panel, Standard (10/23/2024 9:46 AM EDT) Triglycerides 167(H) <150 mg/dL [facility] Comment:Desirable Triglyceri de: less than 150 mg/dLBorderline High Triglyceride 150-199 mg/dLHigh Triglyceride: 200-499 mg/dLVery High Triglyceride: greater than or equal to 5OO mg/dL Cholesterol 141 <200 mg/dL [facility] Comment:Desirable Cholestero l: less than 200 mg/dLBorderline High Cholesterol: 200-239 mg/dLHigh Cholesterol: greater than 239 mg/dL LDL Cholesterol Calculated 71 <100 mg/dL [facility] Comment:Desirable LDL: less than 100 mg/dLNear Optimal/Above Optimal LDL: 110- 129 mg/dLBorderline High LDL: 130-159 mg/dLHigh LDL: 160-189 mg/dLVery High LDL: greater than or equal to 190 mg/dL HDL Cholesterol 37(L) >40 mg/dL [facility] Comment:Desirable HDL: great er than 40 mg/dL Note: This HDL assay may give artificially low results in patients with liver disease. Blood Venous blood specimen / Unknown 10/23/2024 9:46 AM EDT 10/23/2024 11:12 AM EDT us Anne Oliva DO LAB BLOOD ORDERABLES Final R esult Performing Organization Address City/[facility]/ZIP Co de Phone Number [facility] [address] [place] [phone] * (ABNORMAL) Basic Metabolic Panel (10/23/2024 9:46 AM EDT) Pathologist [facility] Sodium 142 135 - 145 mmol/L [facility] Potassium 3.9 3.3 - 5.1 mmol/L [facility] Chloride 104 96 - 108 mmol/L [facility] Carbon Dioxide 29 22 - 29 mmol/L [facility] Anion Gap 13 12 - 20 [facility] Urea Nitrogen (BUN) 26(H) 9 - 16 mg/dL [facility] Creatinine, Serum 1.21 0.5 - 1.4 mg/dL [facility] Estimated Glomerular Filt Rate >60 [facility] Comment:Chronic Kidney Disea se: Estimated GFR < 60 mL/min/[id number] Kidney Disease: Estimated GFR < 15 mL/min/1.73m2 Glucose 176(H) 60 - 115 mg/dL [facility] Calcium 9.9 8.4 - 10.2 mg/dL [facility] Blood Venous blood specimen / Unknown 10/23/2024 9:46 AM EDT 10/23/2024 11:12 AM EDT Anne Oliva DO LAB BLOOD ORDERABLES Final R esult [facility] [address] [place] [phone] * (ABNORMAL) POCT A1C (10/23/2024 9:29 AM EDT) Pathologist [facility] Hemoglobin A1C 7.2(A) 4.0 - 6.0 % Blood 10/23/2024 9:29 AM EDT Anne Oliva DO POINT OF CARE TEST ENTER/MARISSA T ORDERABLES Final Result * POCT glucose manually resulted (10/23/2024 9:29 AM EDT) Pathologist [facility] Glucose Blood, POC 164 60 - 200 mg/dL Blood Capillary blood specimen / Unknown 10/23/2024 9:29 AM EDT Anne Oliva DO POINT OF CARE TEST ENTER/MARISSA T ORDERABLES Final Result from Last 3 Months Insurance [facility] C3
--- OUTSIDE RECORDS SUMMARY | 2025-01-16 12:31 | XMS_ITS | Encounter Summary ---
Author Organization [facility] Address [address] [facility] [address] [place] [phone] Phone Care Team Providers Care Plant Operations Manager Name Role Phone Sushant Grimm MD Primary Care Provider [phone] Encounter Details Date Type Department Care Team (Danis st Contact Info) Description 11/16/2023 Ophth Exam [facility] Emergency Department [address] [place] [address] Jagruti Croft MD [address] [place] [address] [email or web address] Social History Tobacco Use Types Packs/Day Years Used Date Smoking Tobacco: Never Assessed Education Answer Date Recorded Are you interested in more education? Not on elo e 11/16/2023 Are you concerned about learning? Not on file 11/16/2023 No 11/16/2023 No 11/16/2023 Digital Access Answer Date Recorded No 11/16/2023 No 11/16/2023 Reliable internet access at home? Not on file 11/16/2023 Device with a working camera? Not on file Sex and Gender Information Value Date Recorded Sex Assigned at Male 11/16/2023 2:39 PM EDT Legal Sex Male 10:00 AM EDT Gender Identity Male 11/16/2023 2:39 PM EDT Sexual Orientation Straight 11/16/2023 2: 39 PM EDT documented as of this encounter Functional Status * Calculated C-SSRS Risk Score (Lifetime/Recent) Answer Date of Assessment Author No Risk Indicated 11/16/2023 3:23 PM EDT Saul Vaughan RN * Stephenson Suicide Severity Rating Scale (Screener/Recent Self-Report) Question Answer Date of Assessment Author 1. Wish to be (Past 1 Month) No 024 3:23 PM EDT Saul Vaughan RN 2. Non-Specific Active Suici kuldeep Thoughts (Past 1 Month) No 11/16/2023 3:23 PM EDT Abdulaziz Vaughan RN 6. Suicidal Behavior (Lifetime) No 3:23 PM EDT Saul Vaughan RN documented as of this encounter Plan of Treatment Not on file documented as of this encounter Visit Diagnoses Not on filedocumented in this encounter Care Teams Plant Operations Manager Relationship Specialty Start Date End Date Sushant Grimm MD [address] [place] [phone] [email or web address] PCP - General 11/16/23 documented as of this encounter Additional Source Comments The information contained in this document represents components of the legal health record. It is not the complete legal health record.[facility]
--- OUTSIDE RECORDS SUMMARY | 2025-01-16 12:31 | XMS_ITS | Encounter Summary ---
Author Organization [employer] Address [address] [facility] [address] [place] [address] Care Team Providers Care Trust Officer Name Role Phone Unavailable Primary Care Provider Unavailabl e Encounter Details Date Type Department Care Team (Late st Contact Info) Description 01/14/2025 Population Health Risk Score [facility] (C3) Department [address] [facility] [address] [place] [phone] Provider, Population Health Generic Social History Tobacco Use Types Packs/Day Years Used Date Smoking Tobacco: Never Smokeless Tobacco: Never Sex and Gender Information Value Date Recorded Sex Assigned at Male 10/23/2024 8:33 AM EDT Legal Sex Male 10:42 AM EDT Gender Identity Male 10/23/2024 8:33 AM EDT Sexual Orientation Straight 10/23/2024 8: 33 AM EDT documented as of this encounter Plan of Treatment Upcoming Encounters Date Type Department Care Team (Late st Contact Info) Description 02/12/2025 9:30 AM EDT Office Visit [facility] MEDICINE [address] [place] [address] José Miguel Conn MD [address] [place] [address] 04/27/2025 9:00 AM EST Office Visit [facility] OPTOMETRY [address] [place] [address] Keyonna Stroud, OD [address] [place] [address] documented as of this encounter Visit Diagnoses Not on filedocumented in this encounter
[2025-01-16 13:46] LABS: Prostate Specific Antigen 8.76 ng/mL (<0.05-4.0)
== END 2025-01-16 11:36 | disposition home or self-care (01) ==
LOC: HO.LAB 11:35
PROVIDERS: Visit Provider Urology
DX: R97.20 Elevated prostate specific antigen [PSA] (principal)
CPT/HCPCS: 36415; 84153

== ENCOUNTER 2025-01-19 11:50 | Outpatient (AMB) | payer MEDICAID, SELFPAY ==
--- NOTE | 2025-01-19 12:12 | A.OFFVIS_ITS ---
Intake Visit Reasons: PSA/ F/U Intake Note: Patient is present for follow up/PSA * 01/16 PSA: 8.76 Urology Medication:Tadalafil,Finasteride Antibiotic Allergy:NONE Blood Thinner:NONE PVR:35ml Collection Analyst Name: Raleigh Valencia363 Accompanied by: Self / Same As Patient Allergies No Known Allergies Allergy (Verified 01/19/25 12:23) Medication List - Last Reconciled 01/19/25 by Carlos Hodgson MD atorvastatin 20 mg PO DAILY dapagliflozin propanediol (Farxiga) 10 mg PO DAILY empagliflozin-metformin 12.5-1,000 mg (Synjardy) 1 tab PO BID finasteride (Proscar) 5 mg PO DAILY losartan-hydrochlorothiazide 100-12.5 mg 1 tab PO DAILY tadalafil 5 mg PO DAILY 30 days HPI Comments Details: 01/19/25--Dontrell is a 59-year-old male who is on active surveillance for localized prostate cancer. He is prescribed finasteride 5 mg daily. Here in follow-up repeat PSA on 01/16/25 is 8.76. Previous PSA was 12.8. On daily Cialis 5 mg for erectile dysfunction and BPH symptoms. States medication is working well. History of Present Illness The patient is a 59-year-old male presenting for follow-up on localized prostate cancer under active surveillance. The patient has been diagnosed with localized prostate cancer and is currently on active surveillance. He is prescribed finasteride 5 mg daily as part of his management plan. A recent PSA test on 01/16/19 showed a level of 8.76, which is a decrease from a previous level of 12. The patient has undergone a bone scan, which returned normal results. He is also taking tadalafil, which he reports is beneficial. Results - Labs: PSA level decreased from 12 to 8.76 - Imaging: Bone scan results were normal Plan--MR prostate, monitor PSA. 10/31/2024-- The patient is a 58-year-old male presenting for follow-up on prostate cancer diagnosis and management. - Prostate cancer was diagnosed following a prostate biopsy, which revealed minimal cancer volume, classified as group 1, indicating a low-grade tumor. - The bone scan conducted was negative, indicating no metastasis. - Due to the minimal volume of cancer, Polaris testing on the biopsy tissue was not possible. - The cancer is localized and low volume, which is considered a favorable prognosis. Results - Bone scan: Negative for metastasis Plan - Continue active surveillance for prostate cancer as recommended by the [place] [employer]. - Prescribed finasteride 5 mg daily - Schedule follow-up in 10 weeks with a PSA test to be conducted a week prior. - Discussed potential quality of life impacts of aggressive treatments, including erectile dysfunction and urinary incontinence. 06/16/24--Dominican/Creo certified outcomes specialist utilized; status post prostate biopsy on 05/30/24 I have reviewed results, Josias 3+3, group 1. I have discussed treatment options to include Radical prostatectomy: The major possible side effects of radical prostatectomy are: Urinary incontinence and Erectile dysfunction Radiation Therapy, which uses high-energy rays or particles to kill cancer cells. External beam radiation vs Brachytherapy (internal radiation). Active Surveillance- reasonable in localized early diagnosed prostate cancer. Plan consider active surveillance -patient is pre biopsy PSA greater than 12. Will check bone scan, send prostate biopsy tissue for Polaris and MRI and PSA in 4 months. Discussed baseline erectile function. The patient states it is about 60%. Comorbidity diabetes. Will start daily Cialis 5 mg. 45 minutes spent in review of records pertaining to this visit and including [id number] discussion with the patient and documentation of this visit. 05/02/2024--Dontrell is a 58-year-old male here for new patient evaluation for elevated PSA 12.8. Dontrell denies any urinary symptoms. He states prior to starting medication for diabetes he was getting up several times at nighttime but this has resolved since his diabetes is under control. I have discussed PSA is a blood test, prostate specific antigen and is an enzyme secreted by the prostate gland. Elevated PSA may be due to multiple conditions including prostate inflammatory condition, enlarged prostate or prostate cancer. Plan schedule prostate biopsy outpatient. Cipro 500 mg twice a day for 5 days start 1 day prior to prostate biopsy. [facility] Medical History PSA elevation Dyslipidemia DM w/o complication type II A-fib GERD (gastroesophageal reflux disease) Hypertension Surgical History History of appendectomy Review of Systems Const All systems reviewed & are unremarkable except as noted in HPI and below Reports no additional complaints Eyes Reports no additional complaints ENT Reports no additional complaints Card Reports no additional complaints Resp Reports no additional complaints GI Reports no additional complaints Reports as per HPI Musc Reports no additional complaints Skin/Breast Reports system reviewed and no additional complaints, except as documented Neuro Reports no additional complaints Psych Reports no additional complaints Endo Reports no additional complaints Johny/Lymph Reports no additional complaints Aller/Immun Reports no additional complaints Results Reviewed Results Reviewed: Collected: 05/30/24 Location: [facility] Received: 05/30/24 Diagnosis A: Left base lateral: Atypical glands, suspicious for adenocarcinoma. B: Left base medial: Benign prostatic tissue. C: Left mid lateral: Prostatic adenocarcinoma, [place] score 6 (3+3), grade group 1, 1.5 mm, 8% of core, perineural invasion, and prostatic intraepithelial neoplasia. D: Left mid medial: Atypical glands, suspicious for adenocarcinoma. E: Left apex lateral: Benign prostatic tissue. F: Left apex medial: Benign prostatic tissue. G: Right base lateral: Benign prostatic tissue. H: Right base medial: Benign prostatic tissue. I: Right mid lateral: Prostatic adenocarcinoma, [place] score 6 (3+3), grade group 1, 0.3 mm, 2% of core. J: Right mid medial: Atypical glands, suspicious for focal prostatic intraepithelial neoplasia. K: Right apex lateral: Prostatic adenocarcinoma, [place] score 6 (3+3), grade group 1, 3 mm, 20% of core. L: Right apex medial: Prostatic adenocarcinoma, [place] score 6 (3+3), grade group 1, 0.5 mm, 3% of core, and focal prostatic intraepithelial neoplasia. Data synopsis - Prostate needle biopsy Histologic type: Adenocarcinoma, acinar type Histologic grade: [place] score: 6 (3+3) % of pattern 4: 0 % of pattern 5: 0 Grade group: 1 Tumor quantitation: Number cores positive: 4 Patient: Dontrell Rios Age/Sex: 58/M MR#: [id number] Page 1 of 4 Surgical Pathology [id number] Total number of cores: 13 % of tissue involved: 3% Periprostatic fat inv.: Not identified Seminal vesicle inv.: Not identified Perineural inv.: Present Lymphatic and/or blood vessel invasion: Not identified Clinical History Elevated PSA Microscopic Description Microscopic sections reviewed. Sections show multiple needle cores of prostate gland parenchyma which are variably involved by prostatic adenocarcinoma ranging from 2-20% of the cores. The tumor is composed of well-formed glands, Josias score 6(3+3), with mildly pleomorphic nuclei and relatively distinct nucleoli. Focal perineural invasion is identified in part C. There is no evidence of lymphovascular invasion, or extraprostatic extension. PIN4 multiplex stain is performed with results on the areas of interest as follows: Suspicious glands in Part A show positive P504S and negative HMWkeratin and p63. Part B shows patchy P504S staining similar to background, with positive HMWkeratin and p63. Part D shows positive P504S and rare basal cells on HMWkeratin and p63. Part I shows positive P504S and negative HMWkeratin and p63. Part J shows an area suspicious for focal PIN on H&E stain, however this area is disrupted on the immunostained slide. Part K shows positive P504S and negative HMWkeratin and p63. Part L shows shows positive P504S and few basal cells in prostatic intraepithelial neoplasia, and positive P504S and negative HMWkeratin and p63 in invasive tumor. Controls stain appropriately. Material Received A: Left base lateral B: Left base medial C: Left mid lateral D: Left mid medial E: Left apex lateral F: Left apex medial G: Right base lateral H: Right base medial I: Right mid lateral J: Right mid medial K: Right apex lateral L: Right apex medial Assessment & Plan Assessment & Plan (1) PSA elevation: Code(s): R97.20 - Elevated prostate specific antigen [PSA] Category: Medical (2) Adenocarcinoma of prostate: Code(s): C61 - Malignant neoplasm of prostate Category: Medical (3) Erectile dysfunction: Code(s): N52.9 - Male erectile dysfunction, unspecified Category: Medical (4) Diabetes: Code(s): E11.9 - Type 2 diabetes mellitus without complications Category: Medical Plan Plan--MR prostate, monitor PSA. Continue finasteride Continue Cialis Orders: Orders MR Prostate wo/w con 1 Month C61 - Malignant neoplasm of prostate, R97.20 - Elevated prostate specific antigen [PSA] PSA,Total (Free>4and<10) 10 Weeks C61 - Malignant neoplasm of prostate, N52.9 - Male erectile dysfunction, unspecified Medications: Refilled finasteride (Proscar) 5 mg PO DAILY 90 tabs 3RF tadalafil USE COUPON ATTACHED NOT INSURANCE NO PA NEEDED! BIN PCN Group [facility] [address] [id number] 5 mg PO DAILY 30 tabs 5RF 30 days N40.0 - Benign prostatic hyperplasia without lower urinary tract symptoms Patient Instructions: The patient had an opportunity to ask questions regarding treatment plan. The patient expressed understanding and agreement with the above treatment plan. The patient is aware they should contact our office by phone for worsening of their current condition or the appearance of new symptoms. Compliance is encouraged with any medications and followup testing that is ordered. It is a privilege to be allowed the opportunity to participate in the urologic care of your patient. If you have any questions or concerns regarding treatment for the above conditions please do not hesitate to contact me. The office telephone contact is [phone]. This note is constructed in part using voice recognition software. While every effort has been made to ensure accuracy process controls technician errors may have been included. Yours sincerely, Carlos Hodgson MD Scribe Plan - Not visible on output: Patient was informed and verbally consented to the use of an ambient scribe for clinic note documentation during this visit. Coding Level of Care Code Est Pt Level 4 (45128) Complex EM visit Add On G2211 Diagnoses PSA elevation R97.20 Adenocarcinoma of prostate C61 Erectile dysfunction N52.9 Diabetes E11.9
--- OUTSIDE RECORDS SUMMARY | 2025-01-19 14:26 | XMS_ITS | Encounter Summary ---
Author Organization [facility] Address [address] [facility] [address] [place] [address] Phone Care Team Providers Care Pro Shop Attendant Name Role Phone Sushant Grimm MD Primary Care Provider [phone] Encounter Details Date Type Department Care Team (Danis st Contact Info) Description 11/16/2023 Ophth Exam [facility] Emergency Department [address] [place] [address] Jagruti Croft MD [address] [place] [address] [email or web address] Social History Tobacco Use Types Packs/Day Years [...] 3:23 PM EDT Saul Vaughan RN * [place] Suicide Severity Rating Scale (Screener/Recent Self-Report) Question [...] on filedocumented in this encounter Care Teams Pro Shop Attendant Relationship Specialty Start Date End Date Sushant Grimm MD [address] [place] [phone] [email or web address] PCP - General 11/16/23 documented as of this encounter Additional Source Comments The information contained in this document represents components of the legal health record. It is not the complete legal health record.[facility]
--- OUTSIDE RECORDS SUMMARY | 2025-01-19 14:26 | XMS_ITS | Encounter Summary ---
Author Organization [facility] Address [address] [place] [address] Phone Care Team Providers Care Diesel Maintenance Technician Name Role Phone Sushant Grimm MD Primary Care Provider [phone] Encounter Details Date Type Department Care Team (Danis st Contact Info) Description 01/02/2024 Procedure Pass [facility] DEPT [address] [place] [id number] Social History Tobacco Use Types Packs/Day Years [...] on filedocumented in this encounter Care Teams Diesel Maintenance Technician Relationship Specialty Start Date End Date Sushant Grimm MD [address] [place] [phone] [email or web address] PCP - General 11/16/23 documented as of this encounter Additional Source Comments The information contained in this document represents components of the legal health record. It is not the complete legal health record.[facility]
--- OUTSIDE RECORDS SUMMARY | 2025-01-19 14:26 | XMS_ITS | Clinical Summary ---
Author Organization [facility] Address [address] [facility] [address] [place] [address] Phone Care Team Providers Care B2B Sales Professional Name Role Phone Sushant Grimm MD Primary Care Provider [phone] Allergies No known active allergies Medications glimepiride [...] this topic Medical Devices Implanted Type Area Sheet Finisher Device Identifier Shelf Expiration Date Model / Serial / Lot Lens Intraocular [place] Pre-Loaded Clear [id number] 22.0d - [id number] Implanted:Qty: 1 on 01/02/2024 by Mandeep Hernandes MD at [facility] Eye and Ear Right: Eye [employer] 03/11/2027 [id number] 22.0D / [id number] / Insurance [facility] Care Teams B2B Sales Professional Relationship Specialty Start Date End Date Sushant Grimm MD [address] [place] [address] PCP - General 11/16/23 Additional Source Comments The information contained in this document represents components of the legal health record. It is not the complete legal health record.[facility]
--- OUTSIDE RECORDS SUMMARY | 2025-01-19 14:26 | XMS_ITS | Encounter Summary ---
Author Organization [employer] Address [address] [place] [address] Care Team Providers Care Senior Ssis Developer Name Role Phone Unavailable Primary Care Provider Unavailabl e Reason for Visit * Reason Onset Date Comments Med Refill 01/19/2025 Encounter Details Date Type Department Care Team ([facility] st Contact Info) Description 01/19/2025 Telephone [facility] [address] [place] [address] Anne Oliva DO [address] [place] [address] Med Refill Social History Tobacco Use Types Packs/Day Years Used Date Smoking Tobacco: Never Smokeless Tobacco: Never Sex and Gender Information Value Date Recorded Sex Assigned at Male 10/23/2024 8:33 AM EDT Legal Sex Male 10:42 AM EDT Gender Identity Male 10/23/2024 8:33 AM EDT Sexual Orientation Straight 10/23/2024 8: 33 AM EDT documented as of this encounter Miscellaneous Notes * Telephone Encounter - Malena Fox RN - 01/19/2025 1:18 PM EDT Per medrec: 3 below rxs have 1 refill remaining * Telephone Encounter - Brina Brito - 01/19/2025 12:58 PM EDT Pt walked in requesting refill on losartan-hydrochlorothiazide 50-12.5mg and farxiga 10mg and metformin 500mg documented in this encounter Plan of Treatment Upcoming Encounters Date Type Department Care Team (Late st Contact Info) Description 02/12/2025 9:30 AM EDT Office Visit [facility] [address] [place] [address] José Miguel Conn MD [address], [place] [phone] 04/27/2025 9:00 AM EST Office Visit [facility] [address] [place] [address] Keyonna Stroud, OD [address] [place] [address] documented as of this encounter Visit Diagnoses Not on filedocumented in this encounter
--- OUTSIDE RECORDS SUMMARY | 2025-01-19 14:26 | XMS_ITS | Clinical Summary ---
Author Organization [employer] Address [address] [facility] 7t [place] [address] Care Team Providers Care Resource Director Name Role Phone Unavailable Primary Care Provider [...] 10/23/2024 Active Blood Glucose Monitoring Suppl (FreeStyle [place] Lite) w/Device kit Use to test blood sugar 2 times daily 1 kit 10/23/2024 Active cholecalciferol (Vitamin D-3) 50 MCG (1999 UT) capsule Take 1 capsule (50 mcg) by mouth Once per day. 90 capsule 3 11/04/2024 Active Active Problems Problem Noted Date Diagnosed Date Type 2 diabetes mellitus 10/23/2024 Essential hypertension 10/23/2024 Proliferative diabetic retinopathy 10/23/2024 Prostatic adenocarcinoma 10/23/2024 Encounters Date Type Department Care Team Description 01/19/2025 Telephone [facility] [address] [place] [address] Anne Oliva DO Med Refill 01/14/2025 Population Health Risk Score [facility] (C3) Department [address] [phone] Provider, Population Health Generic 11/18/2024 Telephone [facility] MEDIC[facility] [address] [place] [address] José Miguel Conn MD 11/05/2024 Orders Only [facility] [address] [place] [phone] nAne Oliva DO 11/04/2024 Refill [facility] [address] [place] [address] Olive Jerry, JOHNSON Positive TB test 10/24/2024 2:30 PM EDT Office Visit [facility] OPTOMETRY [address] [place] [address] Keyonna Stroud, OD Proliferative diabetic retinopathy of both eyes with macular edema associated with type 2 diabetes mellitus (CMS/HCC) (Primary Dx); Combined form of age-related cataract, left eye; Open angle with borderline findings, low risk, bilateral 10/24/2024 Travel 10/24/2024 Telephone [facility] INS ENROLLMENT [address] [place] [address] Sherron Bethea MD 10/23/2024 9:00 AM EDT Office Visit [facility] W[facility] [address] [place] [address] Anne Oliva DO Type 2 diabetes mellitus [...] Description 02/12/2025 9:30 AM EDT Office Visit [facility] [address] [place] [address] José Miguel Conn MD [address] [place] [address] 04/27/2025 9:00 AM EST Office Visit [facility] OPTOMETRY [address] [place] [address] Keyonna Stroud, OD [address] [place] [address] Health Maintenance Due Date Last Done Comments [...] AM EDT Narrative 11/05/2024 10:34 AM EDT [address] [address] XRay Report Signed Patient: Dontrell Rios MR#: [id number] : 1965 Acct:[id number] Age/Sex: 58 / M ADM Date: 11/05/24 [facility] Att[facility] Dr: Anne Oliva DO Ordering Physician: Anne Oliva DO Date of Service: 11/05/24 Procedure(s): XR chest 2V Accession Number(s): [id number] cc: Anne Oliva DO EXAMINATION: XR CHEST [...] 11/05/24 1030 DD/ 0913 TD/TT: 11/05/24 1000 Latex Caster: Procedure Note Donotuseinterpreter, Image - 11/05/[address] [address] XRay Report Signed Patient: Dontrell RiosMR#: [id number] : 1965Acct:[id number] Age/Sex: 58 / MADM Date: 11/05/24 Loc: [facility] Attending Dr: Anne Oliva DO Ordering Physician: Anne Oliva DO Date of Service: 11/05/24 Procedure(s): XR chest 2V Accession Number(s): [id number] cc: Anne Oliva DO EXAMINATION: XR CHEST [...] 11/05/24 1030 DD/ 0913 TD/TT: 11/05/24 1000 Latex Caster: Anne Marievalencia DO IMG XR PROCEDURES Final Resu lt * OCT, Retina - OU - Both Eyes (10/24/2024 4:20 PM EDT) Victoria Luanne Keyonna, OD - 10/24/2024 4:20 PM EDT Images [...] for panretinal photocoagulation (PRP) left eye (OS) Keyonna Stroud OD OPHTH TOMOGRAPHY Final Result * (ABNORMAL) Vitamin D, 25-Hydroxy, Total, Immunoassay (10/23/2024 9:46 AM EDT) Vitamin D 25-OH Total 28.3(L) >30 ng/mL [facility] Comment: Health Based Reference Values*< 20 ng/mL Chqimidys47-35 ng/mL Insufficient> 30 ng/mL Sufficient*Perla ARMSTRONG. N [...] DO LAB BLOOD ORDERABLES Final R esult [facility] [address] [place] [phone] * (ABNORMAL) T-SPOT??.TB (10/23/2024 9:46 AM EDT) T Spot TB Positive( A) Negative [facility] Comment: Diagnosing or excluding tuberculosis [...] as aquantitative test. TS PANEL A 86 [facility] TS PANEL B 109 [facility] Negative Control Passed [facility] Positive Control Passed [facility] Comment:For additional infor archie, please refer tohttp://education.[employer]faq/WZJ081(This link is being provided for informational/educational purposes only.)THIS TEST WAS PERFORMED AT:[employer] [id number] [place] [address]MSLXPAGABDIRIZAK ROMERO MD,PHD 10/23/2024 9:46 AM EDT 10/23/2024 11:12 AM EDT us Anne Oliva DO LAB BLOOD ORDERABLES Final R esult Performing Organization Address [facility] de Phone Number [facility] [address] [place] [phone] * (ABNORMAL) Albumin, Random Urine W/Creatinine (10/23/2024 9:46 AM EDT) Creatinine, Urine 109.68 mg/dL [facility] Microalbumin Urine 73.0 mg/L [facility] Microalbum Creatinine Ratio Ur 66.5(H) <30 ug/mg cr [facility] Comment:Albumin/Creatinine R atio Reference Ranges: Normal: < 30 ug/mg creatinine Microalbuminuria: 30 - 300 ug/mg creatinineClinical Albuminuria: > 300 ug/mg creatinine Urine (Urine, Random) 10/23/2024 9:46 AM EDT 10/23/2024 11:09 AM EDT us Anne Oliva DO LAB URINE ORDERABLES Final R esult Performing Organization Address [facility] Co de Phone Number [facility] [address] [place] [phone] * Hepatitis C Antibody with Reflex to HCV, RNA, Quantitative, Real-Time PCR (10/23/2024 9:46 AM EDT) [facility] Hepatitis C Antibody Nonreactive Nonreactive [facility] Comment:Antibodies to HCV no t detected; does not exclude early acuteHCV infection. Blood Venous blood specimen / Unknown 10/23/2024 9:46 AM EDT 10/23/2024 11:12 AM EDT [facility] BLOOD ORDERABLES Final R esult Performing Organization Address [facility] Co de Phone Number [facility] [address] [place] [phone] * Hepatitis A Antibody, Total (10/23/2024 9:46 AM EDT) [facility] Hepatitis A Antibody IgG REACTIVE Nonreactive [facility] Comment:The presence of IgG anti-HAV implies past HAV infection(recent or distant) or vaccination against HAV. Blood Venous blood specimen / Unknown 10/23/2024 9:46 AM EDT 10/23/2024 11:12 AM EDT [facility] BLOOD ORDERABLES Final [facility] Performing Organization Address [facility] de Phone Number [facility] [address] [place] [phone] * Chlamydia/N. Gonorrhoeae RNA, TMA, Urogenitial (10/23/2024 9:46 AM EDT) [facility] CT PCR NOT DETECTED Not Detect. [facility] Comment:A not detected test result [...] psychologicalconsequences. NG PCR NOT DETECTED Not Detect. [facility] Comment:A not detected test result [...] AM EDT 10/23/2024 11:09 AM EDT Narrative [facility] - 10/23/2024 2:20 PM EDT Urine Anne Oliva DO LAB MICROBIOLOGY - GENERAL O RDERABLES Final Result Performing Organization Address [facility]/ZIP Co de Phone Number [facility] [address] [place] [phone] * Hepatitis B surface antigen, EIA (10/23/2024 9:46 AM EDT) Hepatitis B Surface Ag Negative Negative [facility] Blood Venous blood specimen / Unknown 10/23/2024 9:46 AM EDT 10/23/2024 11:12 AM EDT Anne Oliva DO LAB BLOOD ORDERABLES Final R esult Performing Organization Address [facility] Co de Phone Number [facility] [address] [place] [phone] * Hepatitis B Core Antibody, Total (10/23/2024 9:46 AM EDT) Hepatitis B Core Antibody Nonreactive Nonreactive [facility] Blood Venous blood specimen / Unknown 10/23/2024 9:46 AM EDT 10/23/2024 11:12 AM EDT Anne Oliva LAB BLOOD ORDERABLES Final R esult Performing Organization Address [facility] Co de Phone Number [facility] [address] [place] [phone] * RPR (Monitor) with Reflex to??Titer (10/23/2024 9:46 AM EDT) RPR (Monitor) w/Refl Titer NON-REACTI VE NON-REACT VIMAL [facility] Comment:THIS TEST WAS PERFOR MED AT:[id number] [place] [id number] ARMENDARIZ MD Rapid Plasma Reagin Ab Titer TNP [facility] Blood Venous blood specimen / Unknown 10/23/2024 9:46 AM EDT 10/23/2024 11:12 AM EDT Anne Oliva DO LAB BLOOD ORDERABLES Final R esult Performing Organization Address [facility] de Phone Number [facility] [address] [place] [phone] * HIV-1/2 Antigen and Antibodies, Fourth Generation, with Reflexes (10/23/2024 9:46 AM EDT) HIV AB/AG Nonreactive Nonreactive [facility] Comment:HIV-1 p24 Ag and/or HIV-1/HIV-2 Ab not detected.A test result that is nonreactive does not exclude thepossibility of exposure to or infection with HIV-1 and/orHIV-2. Nonreactive results in this assay for individualswith prior exposure to HIV-1 and/or HIV-2 may be due toantigen and antibody levels that are below the limit ofdetection of this assay.The [employer] HIV Ag/Ab Combo assay result andsupplemental assay results should be interpreted inconjunction with the patient's clinical presentation,history and other laboratory results. If the results areinconsistent with clinical evidence, additional testing issuggested to confirm the result. Blood Venous blood specimen / Unknown 10/23/2024 9:46 AM EDT 10/23/2024 11:12 AM EDT Anne Oliva DO LAB BLOOD ORDERABLES Final R esult Performing Organization Address [facility]/ZIP Co de Phone Number [facility] [address] [place] [phone] * Hepatitis B Surface Antibody, Qualitative (10/23/2024 9:46 AM EDT) Pathologist [facility] ~Hepatitis B Surface Antibody NONREACTIVE Nonreactive [facility] Comment:Nonreactive: < 8.00 mIU/mL Blood Venous blood specimen / Unknown 10/23/2024 9:46 AM EDT 10/23/2024 11:12 AM EDT Anne Oliva LAB BLOOD ORDERABLES Final R esult Performing Organization Address [facility]/ZIP Co de Phone Number [facility] [address] [place] [phone] * CBC (10/23/2024 9:46 AM EDT) White Blood Count 8.6 4.8 - 10.8 X10*3/uL [facility] Red Blood Count 5.36 4.60 - 5.80 X10*6/uL [facility] Hemoglobin 15.4 14.0 - 18.0 g/dl [facility] Hematocrit 45.6 42.0 - 52.0 % [facility] Mean Corpuscular Volume 85.1 80.0 - 98.0 fL [facility] Mean Corpuscular Hemoglobin 28.7 27.0 - 33.0 pg [facility] Mean Corpuscular HGB Conc 33.8 31.0 - 36.0 g/dl [facility] Red Cell Distribution Width 12.7 11.0 - 16.0 % [facility] Platelet Count 205 160 - 400 X10*3/uL [facility] Mean Platelet Volume 11.1 9.4 - 12.4 fL [facility] NRBC Pct Auto 0.0 0.0 - 0.2 /100WBC [facility] NRBC Abs Auto 0.000 0.0 - 0.012 X10*3/uL [facility] Blood Venous blood specimen / Unknown 10/23/2024 9:46 AM EDT 10/23/2024 11:12 AM EDT Anne Oliva LAB BLOOD ORDERABLES Final R esult Performing Organization Address City/[facility]/ZIP Co de Phone Number [facility] [address] [place] [phone] * TSH (10/23/2024 9:46 AM EDT) Pathologist [facility] Thyroid Stimulating Hormone 0.52 0.32 - 4.0 uIU/mL [facility] Comment:TSH 3rd Generation ( [facility]) Blood Venous blood specimen / Unknown 10/23/2024 9:46 AM EDT 10/23/2024 11:12 AM EDT Anne Oliva DO LAB BLOOD ORDERABLES Final R esult Performing Organization Address City/[facility] Co de Phone Number [facility] [address] [place] [phone] * T4, Free (10/23/2024 9:46 AM EDT) Free T4 (Free Thyroxine) 0.96 0.71 - 1.85 ng/dL [facility] Blood Venous blood specimen / Unknown 10/23/2024 9:46 AM EDT 10/23/2024 11:12 AM EDT Anne Marievalencia LAB BLOOD ORDERABLES Final R esult Performing Organization Address [facility] Co de Phone Number [facility] [address] [place] [phone] * (ABNORMAL) Hemoglobin A1c (10/23/2024 9:46 AM EDT) Hemoglobin A1c 7.0(H) <6.0 % [facility] Comment:Hemoglobin A1C Refer ence Range Adults: 4.8 - 6.0 % Non diabetic: < 6.0 % Goal: < 7.0 %Additional Action Suggested: > 8.0 %Note: Hemoglobin A1c results are invalid for patients with abnormal amounts of HbF. Blood transfusions may impact the HbA1c concentration in the patient sample. Estimated Average Glucose 154 mg/dL [facility] Comment:eAG = Estimated ave rage glucose which is %A1C expressed asaverage glucose, using the formula of the L3V-RurjbwcZaknyzl Glucose study (ADAG), Diabetes Care, Vol.31,#8,Dec. 2007 Blood Venous blood specimen / Unknown 10/23/2024 9:46 AM EDT 10/23/2024 11:12 AM EDT Anne Oliva DO LAB BLOOD ORDERABLES Final R esult Performing Organization Address City/[facility] Co de Phone Number [facility] [address] [place] [phone] * (ABNORMAL) Hepatic Function Panel (10/23/2024 9:46 AM EDT) Bilirubin, Total 0.6 0.0 - 1.0 mg/dL [facility] Bilirubin, Direct 0.2 0.0 - 0.5 mg/dL [facility] Aspartate Amino Transferase 68(H) 5 - 37 U/L [facility] Alanine Aminotransferase 30 0 - 40 U/L [facility] Total Protein 7.9 6.5 - 8.0 g/dL [facility] Albumin Level 4.7 3.5 - 5.0 g/dL [facility] Alkaline Phosphatase 80 39 - 117 U/L [facility] Blood Venous blood specimen / Unknown 10/23/2024 9:46 AM EDT 10/23/2024 11:12 AM EDT Anne Oliva DO LAB BLOOD ORDERABLES Final R esult [facility] [address] [place] [phone] * (ABNORMAL) Lipid Panel, Standard (10/23/2024 9:46 AM EDT) Triglycerides 167(H) <150 mg/dL [facility] Comment:Desirable Triglyceri de: less than 150 mg/dLBorderline High Triglyceride 150-199 mg/dLHigh Triglyceride: 200-499 mg/dLVery High Triglyceride: greater than or equal to 5OO mg/dL Cholesterol 141 <200 mg/dL [facility] Comment:Desirable Cholestero l: less than 200 mg/dLBorderline High Cholesterol: 200-239 mg/dLHigh Cholesterol: greater than 239 mg/dL LDL Cholesterol Calculated 71 <100 mg/dL [facility] Comment:Desirable LDL: less than 100 mg/dLNear Optimal/Above Optimal LDL: 110- 129 mg/dLBorderline High LDL: 130-159 mg/dLHigh LDL: 160-189 mg/dLVery High LDL: greater than or equal to 190 mg/dL HDL Cholesterol 37(L) >40 mg/dL [facility] Comment:Desirable HDL: great er than 40 mg/dL Note: This HDL assay may give artificially low results in patients with liver disease. Blood Venous blood specimen / Unknown 10/23/2024 9:46 AM EDT 10/23/2024 11:12 AM EDT Anne Oliva DO LAB BLOOD ORDERABLES Final R esult Performing Organization Address [facility] Co de Phone Number [facility] [address] [place] [phone] * (ABNORMAL) Basic Metabolic Panel (10/23/2024 9:46 AM EDT) Sodium 142 135 - 145 mmol/L [facility] Potassium 3.9 3.3 - 5.1 mmol/L [facility] Chloride 104 96 - 108 mmol/L [facility] Carbon Dioxide 29 22 - 29 mmol/L [facility] Anion Gap 13 12 - 20 [facility] Urea Nitrogen (BUN) 26(H) 9 - 16 mg/dL [facility] Creatinine, Serum 1.21 0.5 - 1.4 mg/dL [facility] Estimated Glomerular Filt Rate >60 [facility] Comment:Chronic Kidney Disea se: Estimated GFR < 60 mL/min/1.13u0Mghoyz Kidney Disease: Estimated GFR < 15 mL/min/1.73m2 Glucose 176(H) 60 - 115 mg/dL [facility] Calcium 9.9 8.4 - 10.2 mg/dL [facility] Blood Venous blood specimen / Unknown 10/23/2024 9:46 AM EDT 10/23/2024 11:12 AM EDT us Anne Oliva DO LAB BLOOD ORDERABLES Final R esult Performing Organization Address City/[facility]/ZIP Co de Phone Number [facility] [address] [place] [phone] * (ABNORMAL) POCT A1C (10/23/2024 9:29 [...] Final Result from Last 3 Months Insurance [facility] C3
--- OUTSIDE RECORDS SUMMARY | 2025-01-19 14:26 | XMS_ITS | Encounter Summary ---
Author Organization [employer] Address [address] [facility] 7t [place] [address] Care Team Providers Care Senior Technologist Name Role Phone Unavailable Primary Care Provider Unavailabl e Encounter Details Date Type Department Care Team (Late st Contact Info) Description 01/14/2025 Population Health Risk Score [facility] (C3) Department [address] [facility] [address] [place] [phone] Provider, Population Health Generic Social History Tobacco [...] Description 02/12/2025 9:30 AM EDT Office Visit [facility] [address] [place] [address] José Miguel Conn MD [address] [place] [address] 04/27/2025 9:00 AM EST Office Visit [facility] OPTOMETRY [address] [place] [address] Keyonna Stroud, OD [address] [place] [address] documented as of this encounter Visit Diagnoses Not on filedocumented in this encounter
== END 2025-01-19 12:45 | disposition home or self-care (01) ==
LOC: HO.HUSH 11:51
PROVIDERS: Visit Provider Urology
DX: R97.20 Elevated prostate specific antigen [PSA] (principal); C61 Malignant neoplasm of prostate; N52.9 Male erectile dysfunction, unspecified; E11.9 Type 2 diabetes mellitus without complications; Z13.9 Encounter for screening, unspecified
CPT/HCPCS: 99214

== ENCOUNTER → 2025-01-19 11:50 | Outpatient (BNVA) | payer MEDICAID, SELFPAY | PROVIDERS: Visit Provider Urology | DX: R97.20 Elevated prostate specific antigen [PSA] (principal); N52.9 Male erectile dysfunction, unspecified; E11.9 Type 2 diabetes mellitus without complications; C61 Malignant neoplasm of prostate | CPT/HCPCS: 81003; 99212 ==

== ENCOUNTER → 2025-03-03 07:42 | Outpatient (BNV) | payer MEDICAID, SELFPAY | PROVIDERS: Visit Provider Radiology Diagnostic Radiology | DX: C61 Malignant neoplasm of prostate (principal) | CPT/HCPCS: 72197 ==

== ENCOUNTER 2025-03-03 08:11 | Outpatient (REF) | payer MEDICAID, SELFPAY ==
--- NOTE | ~2025-03-03 | MR_ITS ---
EXAMINATION: MR PROSTATE WITHOUT THEN WITH IV CONTRAST HISTORY: C61 - Malignant neoplasm of prostate TECHNIQUE: 1.5T body coil survey of the pelvis was performed. Phase array coil imaging of the prostate was performed in multiplanar high resolution axial, coronal, sagittal fast spin echo T2 and axial T1 weighted imaging sequences. Axial diffusion imaging at intermediate and high field performed with ADC mapping. Next, 9 mL Gadavist was given by intravenous infusion, and dynamic axial imaging performed. 3-D reconstructions and post-processing were not performed as no discrete lesion was identified. COMPARISON: There are no prior studies available for comparison. CLINICAL DATA: Most recent PSA: 8.76 ng/mL on 01/16/2025. PSA Density: 0.23 ng/mL squared Prostate Biopsy: Positive biopsy on 05/30/2024 with a Josias score of 3+3 = 6. FINDINGS: Prostate size: 3.8 x 4.5 x 4.2 cm. Calculated prostate volume is 37.3 mL. Hemorrhage: There is mild increased T1 signal intensity within the peripheral zone which could represent hemorrhage. Transitional Zone: There is moderate heterogeneous nodular hypertrophy of the transitional zone. There are multiple areas of restricted diffusion in the transitional zone which appear encapsulated and therefore likely to represent BPH nodules. Peripheral Zone: There are scattered linear foci of decreased T2 signal intensity within the peripheral zone which can be seen in the setting of prostatitis of scarring. No focal abnormality is identified. There are no foci of restricted diffusion. Seminal Vesicles/Ejaculatory Ducts: Symmetric and normal in signal and caliber. Pelvic Lymph Nodes: No obturator or internal iliac lymph nodes meeting size criteria for adenopathy. Marrow Signal: Normal marrow signal and enhancement without focal lesion identified. MR/MR Prostate wo/w con IMPRESSION: No discrete focus of abnormal signal intensity is identified to suggest clinically significant prostate carcinoma. PI-RADS 2: Low (clinically significant cancer is unlikely to be present) PI-RADS Assessment Categories PI-RADS 1: Very low (clinically significant cancer is highly unlikely to be present) PI-RADS 2: Low (clinically significant cancer is unlikely to be present) PI-RADS 3: Intermediate (the presence of clinically significant cancer is equivocal) PI-RADS 4: High (clinically significant cancer is likely to be present) PI-RADS 5: Very high (clinically significant cancer is highly likely to be present) [employer]. MR Prostate Imaging Reporting and Data System version 2.1. [email or web address] Electronically signed by: Usman Wills MD 03/03/2025 09:35 AM EDT RP
--- OUTSIDE RECORDS SUMMARY | 2025-03-03 08:18 | XMS_ITS | Encounter Summary ---
Author Organization [facility] Address [address] [facility] [address] [place] [phone] Phone Care Team Providers Care Varnisher Apprentice Name Role Phone Sushant Grimm MD Primary Care Provider [phone] Encounter Details Date Type Department Care Team (Danis st Contact Info) Description 11/16/2023 Ophth Exam [facility] Emergency Department [address] [place] [address] Jagruti Croft MD [address] [place] [address] [email or web address] Social History Tobacco Use Types Packs/Day Years [...] 3:23 PM EDT Saul Vaughan RN * [place] Suicide Severity Rating Scale (Screener/Recent Self-Report) Question [...] on filedocumented in this encounter Care Teams Varnisher Apprentice Relationship Specialty Start Date End Date Sushant Grimm MD [address] [place] [phone] [email or web address] PCP - General 11/16/23 documented as of this encounter Additional Source Comments The information contained in this document represents components of the legal health record. It is not the complete legal health record.[facility]
--- OUTSIDE RECORDS SUMMARY | 2025-03-03 08:19 | XMS_ITS | Clinical Summary ---
Author Organization [facility] Address [address] [facility] [address] [place] [phone] Phone Care Team Providers Care Cribber Name Role Phone Sushant Grimm MD Primary Care Provider [phone] Allergies No known active allergies Medications glimepiride [...] Adult Td,Tdap Booster 1965 CREATININE LEVEL 1965 LIPID PANEL 1965 POTASSIUM LEVEL 1965 DEPRESSION SCREENING 1979 HEPATITIS C SCREENING 12/02/1985 HIV ONE-TIME SCREENING (18-6 5 YEARS) 12/02/1985 SCREENING FOR DIABETES 12/02/2002 COLOGUARD 12/02/2012 COLONOSCOPY 12/02/2012 COLORECTAL CANCER SCREENING 12/02/2012 FIT TEST 12/02/2012 FOBT 12/02/2012 SIGMOIDOSCOPY 12/02/2012 VIRTUAL COLONOSCOPY 12/02/2012 PNEUMOCOCCAL VACCINES (50+ y ears) (1 of 1 - PCV) 12/02/2017 RSV VACCINE (1 - Risk 50-74 years 1-dose series) 12/02/2017 ZOSTER VACCINES (1 of 2) 12/02/2017 INFLUENZA VACCINE (#1) 2024 COVID-19 VACCINE (1 - 2024-2 6 season) 2025 SMOKING STATUS SCREENING (On ce After 26 Yrs) Completed 03/04/2024 HEPATITIS A [...] this topic Medical Devices Implanted Type Area Biofuels Product Development Manager Device Identifier Shelf Expiration Date Model / Serial / Lot Lens Intraocular Clareon Pre-Loaded Clear [id number] 22.0d - [id number] Implanted:Qty: 1 on 01/02/2024 by Mandeep Hernandes MD at [facility] Ear Right: Eye [employer]IE[employer]y 03/11/2027 [id number] 22.0D / [id number] / Insurance [facility] Care Teams Cribber Relationship Specialty Start Date End Date Sushant Grimm MD [address] [place] [address] [email or web address] PCP - General 11/16/23 Additional Source Comments The information contained in this document represents components of the legal health record. It is not the complete legal health record.[facility]
--- OUTSIDE RECORDS SUMMARY | 2025-03-03 08:19 | XMS_ITS | Clinical Summary ---
Author Organization [employer] Address [address] [place] [address] Care Team Providers Care Brass Wind Instruments Tube Bender Name Role Phone José Miguel Conn MD Primary Care Provide r Allergies No known active allergies Medications tadalafil (Cialis) 5 MG tablet Take 1 tablet by mouth Once per day. 10/15/19 25 Active FREESTYLE LITE test strip Use to test blood sugar 2 times daily 100 each 10/24/19 25 2025 Active Lancets misc Use to test blood sugar 2 times daily 100 each 10/24/19 25 Active Alcohol Swabs 70 % pads Use to test blood sugar 2 times daily 100 each 10/24/19 25 Active Blood Glucose Monitoring Suppl (FreeStyle [place] Lite) w/Device kit Use to test blood sugar 2 times daily 1 kit 10/24/19 25 Active cholecalciferol (Vitamin D-3) 50 MCG (1999 UT) capsule Take 1 capsule (50 mcg) by mouth Once per day. 90 capsule 3 11/05/19 25 2025 Active losartan-hydroCHLOR Othiazide (Hyzaar) 50-12.5 MG tabletIndications:E ssential hypertension Take 1 tablet by mouth Once per day. 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 90 tablet 1 02/13/20 25 2025 Active atorvastatin (Lipitor) 20 MG tabletIndications:T ype 2 diabetes mellitus with moderate nonproliferative retinopathy of both eyes, without long-term current use of insulin, macular edema presence unspecified (HCC) Take 1 tablet (20 mg) by mouth Once per day. 90 tablet 1 02/13/20 25 2025 Active metFORMIN XR (Glucophage-XR) 500 MG 24 hr tabletIndications:T ype 2 diabetes mellitus with moderate nonproliferative retinopathy of both eyes, without long-term current use of insulin, macular edema presence unspecified (HCC) Take 2 tablets (1,000 mg) by mouth with evening meal. Do not crush, chew, or split. 180 tablet 1 02/13/20 25 2025 Active losartan-hydroCHLOR Othiazide (Hyzaar) 50-12.5 MG tablet Take 1 tablet by mouth Once per day. 90 tablet 1 10/24/19 25 2024 Discontinued(R eorder (will not trigger notification to Pharmacy)) atorvastatin (Lipitor) 20 MG tablet Take 1 tablet (20 mg) by mouth Once per day. 90 tablet 1 10/24/19 25 2024 Discontinued(R eorder (will not trigger notification to Pharmacy)) dapagliflozin (Farxiga) 10 MG Take 1 tablet (10 mg) by mouth Once per day. 90 tablet 1 10/24/19 25 2024 Discontinued(R eorder (will not trigger notification to Pharmacy)) metFORMIN XR (Glucophage-XR) 500 MG 24 hr tablet Take 2 tablets (1,000 mg) by mouth with evening meal. Do not crush, chew, or split. 180 tablet 1 10/24/19 25 2024 Discontinued(R eorder (will not trigger notification to Pharmacy)) Active Problems Problem Noted Date Diagnosed Date History of positive PPD 02/12/2025 Assessment & Plan (02/12/2025 12:48 PM EDT): Patient has a history of positive PPD with negative chest x-rays. Next visit will inquire if he was ever treated Type 2 diabetes mellitus, wi thout long-term current use of insulin 10/23/2024 Assessment & Plan (02/12/2025 12:54 PM EDT): Patient here for a follow up in regards to his DM DM: Controlled Hgb A1c 02/12/2025: 6.5 He is on a regimen of: Farxiga 10 mg po daily and Metformin XR 500 mg 1 tabs with evening meal Microalbumin 10/23/2024 66.5 Ophthalmology : He was seen last week, and had injection left eye. He was referred to Dr. Chucho Khan retinal specialist. He has Bilateral DR Plan: Continue current regime 3 month follow up Essential hypertension 10/23/2024 Assessment & Plan (02/12/2025 12:53 PM EDT): Pt here for hypertension evaluation BP controlled Lab Results Component Value Date NA 142 10/23/2024 K 3.9 10/23/2024 CL 104 10/23/2024 BUN 26 (H) 10/23/2024 CREATININE 1.21 10/23/2024 Regimen: Hyzaar 50/12.5 mg po daily Plan: Continue current regimen Proliferative diabetic retinopathy 10/23/2024 Assessment & Plan (02/12/2025 12:56 PM EDT): He used to follow with a retinal specialist at [facility] [place]. Seen by Dr Stroud 10/24/2024 For preretinal and vitreous hemorrhage left eye (OS) Pt is S/p panretinal photocoagulation (PRP) right eye (OD) and avastin [place] (OS[place] [facility] [place] [address] Stroud discussed re-referral back [place] [facility] [place] patient preferred to be seen in [facility]. Dr. Stroud placed a referral to [facility] for panretinal photocoagulation (PRP) She discussed symptoms of retinal detachment and to RTC immediately if flashes/floaters/curtains over vision occur Pt has already been seen and was referred to a retinal specialist as well Pt already has a follow up appointment scheduled Prostatic adenocarcinoma (CMS/HCC) 10/23/2024 Assessment & Plan (02/12/2025 12:57 PM EDT): Pt under the care of [facility], last note on record 06/2024 Pt tells me he was seen recently I spoke on the phone with Dr Tirado Urologist at [facility] who stated pt opted for active surveillance. 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, without long-term current use of insulin, macular edema presence unspecified (HCC) (Primary Dx); Essential hypertension; Prostatic adenocarcinoma (CMS/HCC) (HCC); Type 2 diabetes mellitus without complications, unspecified whether exterminator insulin use (HCC); 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, unspecified proliferative retinopathy type (HCC); History of positive PPD 02/12/2025 Travel 02/11/[address] [id number] Rufina Zaidi MA chart prerp 02/05/2025 Patient Outreach [facility] [address] [place], [place] [phone] José Miguel Conn MD Pre-visit Planning (SDOH negative, Tobacco screening negative. ) 01/19/2025 Telephone [facility] MEDICINE [address] [place] [address] Anne Oliva, DO Med Refill 01/14/2025 Population Health Risk Score [facility] Department [address] [place] [phone] Provider, Population Health Generic from Last 3 Months Social History Tobacco Use Types Packs/Day Years Used Date Smoking Tobacco: Never Smokeless Tobacco: Never Tobacco Cessation:Counseling Given: Not Answered Depression Answer Date Recorded Patient Health Questionnaire-9 Score 0 02/12/2025 Patient Health Questionnaire-9 Score 0 02/12/2025 Last PHQ-9: Questionnaire Data Not on file 1 Housing Stability Answer Date Recorded What is your housing situation today? I have [facility] 02/05/[address] you li ve. Do you have problems with any of the following? None of the above 02/05/2025 Food Insecurity Answer Date Recorded Within the past 12 months, y ou worried that your food would run out before you got money to buy more: Never True 02/05/2025 Within the past 12 months,th e food you bought just didn't last and you didn't have enough money to get more: Never True Transportation Answer Date Recorded In the past 12 months, has l ack of transportation kept you from medical appts, meetings, work or from getting things needed for daily living? No 02/05/2025 Utilities Answer Date Recorded In the past 12 months, has t he electric, gas, oil or water company threatened to shut off services in your home? No 02/05/2025 Depression Answer Date Recorded Patient Health Questionnaire-2 Score 0 02/12/2025 Internet Access Answer Date Recorded Internet Access Q1 Yes 02/05/2025 Internet Access Q2 Not on file 02/05/2025 Sex and Gender Information Value Date Recorded Sex Assigned at Male 10/23/2024 8:33 AM EDT Legal Sex Male 10:42 AM EDT Gender Identity Male 10/23/2024 8:33 AM EDT Sexual Orientation Straight 10/23/2024 8: 33 AM EDT Last Filed Vital Signs Vital Sign Reading Time Taken Comments Blood Pressure 138/84 02/12/2025 8:59 AM EDT Pulse 72 02/12/2025 8:59 AM EDT Temperature 36.3 C (97.4 F) 02/12/2025 8:59 AM EDT Respiratory Rate 20 02/12/2025 8:59 AM EDT Oxygen Saturation 99% 10/23/2024 8:44 AM EDT Inhaled Oxygen Concentration - - Weight 88.8 kg (195 lb 12.8 oz) 02/12/2025 8:59 AM EDT Height 177.8 cm (5' 10 ) 02/12/2025 8:59 AM EDT Body Mass Index 28.09 02/12/2025 8:59 AM EDT Plan of Treatment Upcoming Encounters Date Type Department Care Team (Late st Contact Info) Description 04/27/2025 9:00 AM EST Office Visit [facility] OPTOMETRY [address] [place] [phone] Keyonna Stroud, OD [address] [place] [address] Health Maintenance Due Date Last Done Comments CT Colonography 1967 Colonoscopy 1967 Colorectal Cancer Screening 1967 FIT DNA/Cologuard 1967 FIT 1967 FOBT 1967 Sigmoidoscopy 1967 Diabetes: Foot Exam 12/02/1977 DTaP/Tdap/Td Vaccines (1 - Tdap) 12/02/1986 Hepatitis B Vaccines (1 of 3 - 19+ 3-dose series) 12/02/1986 Pneumococcal Vaccine: 50+ Years (1 of 2 - PCV) 12/02/1986 Zoster Vaccines (1 of 2) 12/02/2017 COVID-19 Vaccine (1 - season) 2025 Influenza Vaccine (#1) 2025 Diabetes: Hemoglobin A1C 08/13/2025 025, 10/23/2024, 10/23/2024 Diabetes: Urine Protein Screening 10/23/2025 10/23/2024 Lipid Panel 10/23/2025 10/23/2024 Eye Exam 10/24/2025 10/24/2024, 10/12, 10/24/2024, Additional history exists Tobacco Screening 10/24/2025 10/24/2024 SDOH Screening 02/05/2026 02/05/2025 Alcohol/Substance Use Screening 02/12/2026 02/12/2025 Depression Screening 02/12/2026 02/12/2025, 02/13/20 25 Disability Screening 02/12/2026 02/12/2025 RSV Patients and Patients Aged 60 years [...] Diagnosis Comments POCT GLYCATED HEMOGLOBIN, TOTAL Routine 02/12/2025 9:12 AM EDT Type 2 diabetes mellitus without complications, unspecified whether exterminator insulin use (HCC) POCT GLUCOSE Routine 02/12/2025 9:01 AM EDT Type 2 diabetes mellitus without complications, unspecified whether fci insulin use (HCC) HEPATITIS C AB W/REFL TO HCV RNA, [...] insulin, unspecified retinopathy severity (CMS/HCC) Essential hypertension from Last 3 Months or Most Recently Relevant to Health Maintenance Results * (ABNORMAL) POCT Hgb A1c (02/12/2025 9:12 AM EDT) Hemoglobin A1C 6.5(A) 4.0 - 5.7 % QC Media Lot # [id number] Lot# Expiration Date [id number] Blood 02/12/2025 9:12 AM EDT José Miguel Ventura MD POINT OF CARE TEST EN TER/EDIT ORDERABLES Final Result * POCT Glucose (02/12/2025 9:01 AM EDT) Glucose Blood, POC 134 60 - 200 mg/dL QC Media Lot # [id number] Lot# Expiration Date 72 Blood Capillary blood specimen / Unknown 02/12/2025 9:01 AM EDT José Miguel Ventura MD POINT OF CARE TEST EN TER/EDIT ORDERABLES Final Result * (ABNORMAL) Albumin, Random Urine W/Creatinine (10/23/2024 9:46 AM EDT) Creatinine, Urine 109.68 mg/dL [facility] Microalbumin Urine 73.0 mg/L H [facility] Microalbum Creatinine Ratio Ur 66.5(H) <30 ug/mg cr [facility] Comment:Albumin/Creatinine R atio Reference Ranges: Normal: < 30 ug/mg creatinine Microalbuminuria: 30 - 300 ug/mg creatinineClinical Albuminuria: > 300 ug/mg creatinine Urine (Urine, Random) 10/23/2024 9:46 AM EDT 10/23/2024 11:09 AM EDT Anne Oliva DO LAB URINE ORDERABLES Final R esult [facility] [address] [place] [phone] * Hepatitis C Antibody with Reflex to HCV, RNA, Quantitative, Real-Time PCR (10/23/2024 9:46 AM EDT) Hepatitis C Antibody Nonreactive Nonreactive [facility] Comment:Antibodies to HCV no t detected; does not exclude early acuteHCV infection. Blood Venous blood specimen / Unknown 10/23/2024 9:46 AM EDT 10/23/2024 11:12 AM EDT Anne Oliva [employer] LAB BLOOD ORDERABLES Final R esult Performing Organization Address City/[facility]/ZIP Co de Phone Number [facility] [address] [place] [address] [phone] * HIV-1/2 Antigen and Antibodies, Fourth Generation, with Reflexes (10/23/2024 9:46 AM EDT) HIV AB/AG Nonreactive Nonreactive [facility] Comment:HIV-1 p24 Ag and/or HIV-1/HIV-2 Ab not detected.A test result that is nonreactive does not exclude thepossibility of exposure to or infection with HIV-1 and/orHIV-2. Nonreactive results in this assay for individualswith prior exposure to HIV-1 and/or HIV-2 may be due toantigen and antibody levels that are below the limit ofdetection of this assay.[employer] HIV Ag/Ab Combo assay result andsupplemental assay results should be interpreted inconjunction with the patient's clinical presentation,history and other laboratory results. If the results areinconsistent with clinical evidence, additional testing issuggested to confirm the result. Blood Venous blood specimen / Unknown 10/23/2024 9:46 AM EDT 10/23/2024 11:12 AM EDT Anne Oliva [employer] LAB BLOOD ORDERABLES Final R esult Performing Organization Address City/[facility]/ZIP Co de Phone Number [facility] [address] [place] [phone] * (ABNORMAL) Lipid Panel, Standard (10/23/2024 9:46 AM EDT) Triglycerides 167(H) <150 mg/dL [facility] Comment:Desirable Triglyceri de: less than 150 mg/dLBorderline High Triglyceride 150-199 mg/dLHigh Triglyceride: 200-499 mg/dLVery High Triglyceride: greater than or equal to 5OO mg/dL Cholesterol 141 <200 mg/dL [facility] Comment:Desirable Cholestero l: less than 200 mg/dLBorderline High Cholesterol: 200-239 mg/dLHigh Cholesterol: greater than 239 mg/dL LDL Cholesterol Calculated 71 <100 mg/dL [facility] Comment:Desirable LDL: less than 100 mg/dLNear Optimal/Above Optimal LDL: 110- 129 mg/dLBorderline High LDL: 130-159 mg/dLHigh LDL: 160-189 mg/dLVery High LDL: greater than or equal to 190 mg/dL HDL Cholesterol 37(L) >40 mg/dL [facility] Comment:Desirable HDL: great er than 40 mg/dL Note: This HDL assay may give artificially low results in patients with liver disease. Blood Venous blood specimen / Unknown 10/23/2024 9:46 AM EDT 10/23/2024 11:12 AM EDT us Anne Oliva DO LAB BLOOD ORDERABLES Final R esult [facility] [address] [place] [phone] from Last 3 Months or Most Recently Relevant to Health Maintenance Insurance [facility] C3 Care Teams Br[employer] Tube Bender Relationship Specialty Start Date End Date José Miguel Conn MD [address] [place] [address] PCP - General Internal Medicine 02/12/25
--- OUTSIDE RECORDS SUMMARY | 2025-03-03 08:19 | XMS_ITS | Encounter Summary ---
Author Organization [facility] Address [address] [place] [phone] Phone Care Team Providers Care Dairy Technologist Name Role Phone Sushant Grimm MD Primary Care Provider [phone] Encounter Details Date Type Department Care Team (Danis st Contact Info) Description 01/02/2024 Procedure Pass [facility] DEPT [address] [place] [phone] Social History Tobacco Use Types Packs/Day Years [...] on filedocumented in this encounter Care Teams Dairy Technologist Relationship Specialty Start Date End Date Sushant Grimm MD [address] [place] [phone] [email or web address] PCP - General 11/16/23 documented as of this encounter Additional Source Comments The information contained in this document represents components of the legal health record. It is not the complete legal health record.[facility]
== END 2025-03-03 08:12 | disposition home or self-care (01) ==
LOC: HO.MRI 08:11
PROVIDERS: Visit Provider Urology
DX: C61 Malignant neoplasm of prostate (principal); R97.20 Elevated prostate specific antigen [PSA]
CPT/HCPCS: 72197; 76377; A9585